=== PATIENT | male | born 1980 | race Caucasian/White ===

== ENCOUNTER 2017-08-07 21:55 | Inpatient (IN) | payer OTHER, SELFPAY ==
[2017-08-07 22:05] VITALS: BP 139/95; PULSE 89; RESP 24; TEMP 36.3; O2SAT 100
--- NOTE | 2017-08-07 22:15 | ED_ITS ---
HPI - Abdominal Pain General Chief Complaint: Abdominal Pain Stated Complaint: RT SIDE PAIN UNDER RIB CAGE Time Seen by Provider: 08/07/17 22:06 Source: patient Mode of arrival: ambulatory Limitations: no limitations History of Present Illness HPI narrative: Here for evaluation of epigastric and right pain. Patient states thatHe has not been feeling well for a couple days however the pain started within the past 24 hr. Patient states that he has been nauseated but has not vomited. He states he had pain similar to this several years ago where he was told that he needed his gallbladder removed. Patient states that he did not have his gallbladder removed because he did not have insurance at the time. Has not had any symptoms since that time Until now Related Data Home Medications Medication Instructions Recorded Confirmed aspirin 81 mg PO Q DAY #1 05/26/11 08/07/17 lisinopril 20 mg PO DAILY 08/07/17 08/07/17 Allergies Allergy/AdvReac Type Severity Reaction Status Date / Time No Known Drug Allergies Allergy Verified 08/07/17 22:12 Review of Systems Constitutional Denies chills, Denies fever(s), Denies lethargy and Denies weakness ENT Ears, Nose, Mouth, and Throat: Denies vertigo Cardiovascular Denies chest pain, Denies irregular heart rhythm, Denies lightheadedness, Denies palpitations, Denies dyspnea, Denies dyspnea on exertion and Denies orthopnea Respiratory Denies cough, Denies dyspnea, Denies dyspnea on exertion and Denies wheezing Gastrointestinal Gastrointestinal: Reports abdominal pain, Denies constipation, Denies cramping, Denies diarrhea, Reports nausea and Denies vomiting Genitourinary Denies dysuria Musculoskeletal Denies back pain, Denies muscle weakness, Denies numbness and Denies tingling Integumentary/Breasts Denies pruritus, Denies erythema, Denies rash and Denies wounds Neurologic Denies confusion, Denies vertigo, Denies numbness, Denies tingling and Denies weakness Psychiatric Denies confusion Endocrine Denies palpitations Allergic/Immunologic Denies wheezing [facility] Medical History Afib (Acute) HTN (hypertension) (Acute) Myocardial infarction (Acute) Social History Smoking Status: Never smoker Exam Initial Vital Signs Initial Vital Signs: Vital Signs Temperature 97.4 F L 08/07/17 22:05 Pulse Rate 89 08/07/17 22:05 Respiratory Rate 24 08/07/17 22:05 Blood Pressure 139/95 H 08/07/17 22:05 Pulse Oximetry 100 08/07/17 22:05 Resp Effort & Inspection: normal respiratory effort, able to speak in complete sentences, no respiratory distress and no use of accessory muscles Auscultation: clear to auscultation bilaterally, no rales, no rhonchi and no wheezes Cardio Rate: regular rate Rhythm: regular rhythm Heart Sounds: no click, no gallops, no murmurs and no rubs Pulses: normal peripheral pulses GI Other: patient with epigastric and right upper quadrant abdominal pain with guarding no rebound Skin General: no rashes or lesions noted, No jaundice and No petechiae Neuro General: alert, oriented x3, gait normal and no focal motor deficits Speech: speech normal Course Orders Ordered: ED Orders 08/07/17 22:15 Complete Blood Count AUTO DIFF Stat Comprehensive Metabolic Panel Stat Lipase Stat 08/07/17 22:16 US abdomen complete Stat 08/08/17 01:59 Consult to Physician Routine Hydromorphone HCl (Dilaudid) 1 mg IV Q4HR PRN PRN Reason: Pain, Severe Ondansetron HCl 4 mg/ Sodium (Chloride) 102 mls @ 204 mls/hr IV Q4HR HANNY Sodium Chloride (Normal Saline 0.9%) 1,000 mls @ 125 mls/hr IV CONT HANNY Discontinued Medications Diphenhydramine HCl (Benadryl) 25 mg IV NOW ONE Stop: 08/08/17 02:05 Last Admin: 08/08/17 02:18 Dose: 25 mg Hydromorphone HCl (Dilaudid) 1 mg IV NOW ONE Stop: 08/07/17 23:17 Last Admin: 08/07/17 23:20 Dose: 1 mg Hydromorphone HCl (Dilaudid) 1 mg IV Q4H PRN PRN Reason: Pain, Severe Last Admin: 08/08/17 01:30 Dose: 1 mg Sodium Chloride (Normal Saline 0.9%) 1,000 mls @ 150 mls/hr IV CONT HANNY Last Infusion: 08/08/17 02:24 Dose: 150 mls/hr Admin: 08/07/17 22:30 Dose: 150 mls/hr Morphine Sulfate (Morphine) 4 mg IV NOW ONE Stop: 08/07/17 22:16 Last Admin: 08/07/17 22:30 Dose: 4 mg Ondansetron HCl (Zofran) 4 mg IV NOW ONE Stop: 08/07/17 22:16 Last Admin: 08/07/17 22:30 Dose: 4 mg Vital Signs - 8 hr 08/07/17 22:05 08/07/17 23:17 08/08/17 02:14 Temperature 97.4 F L Pulse Rate 89 84 73 Respiratory Rate 24 22 17 Blood Pressure 139/95 H Blood Pressure [Right Arm] 124/65 H 105/67 Pulse Oximetry 100 97 95 08/08/17 02:23 Temperature Pulse Rate 77 Respiratory Rate 18 Blood Pressure 117/71 Blood Pressure [Right Arm] Pulse Oximetry 94 MDM - Abdominal Pain Lab Data Attestation: I reviewed the patient's lab results. Result diagrams: 08/07/17 22:15 08/07/17 22:15 Lab Results 08/07/17 08/07/17 Range/Units 22:15 22:15 WBC 7.7 (4.5-11.0) X10^3/uL RBC 5.01 (4.5-5.9) X10^6/uL Hgb 15.9 (13.5-17.5) g/dL Hct 45.5 (41-53) % MCV 90.7 (80-100) fL MCH 31.7 (26-34) PG MCHC 34.9 (30-36) % RDW 13.1 (11.6-14.8) % Plt Count 240 (150-400) X10^3/uL Neut % (Auto) 47.0 L (50-75) % Lymph % (Auto) 44.2 H (25-40) % [place] % (Auto) 6.6 (3-14) % Eos % (Auto) 1.1 L (2-4) % Baso % (Auto) 1.1 (0-2) % Neut # (Auto) 3600 (7312-2511) /uL Sodium 144 (137-145) mmol/L Potassium 4.1 (3.4-5.1) mmol/L Chloride 107 (98-107) mmol/L Carbon Dioxide 23 (22-32) mmol/L BUN 12 (9-20) mg/dL Creatinine 0.60 L (0.66-1.25) mg/dL Estimated GFR > 60.0 (>60) mL/min BUN/Creatinine Ratio 20.0 (6-22) Glucose 97 (70-100) mg/dL Calcium 9.0 (8.4-10.2) mg/dL Total Bilirubin 0.6 (0.2-1.3) mg/dL AST 33 (17-59) IU/L ALT 41 (21-72) IU/L Alkaline Phosphatase 57 (38-126) U/L Total Protein 8.6 H (6.3-8.2) g/dL Albumin 4.5 (3.5-5.0) g/dL Globulin 4.1 (1.7-4.1) g/dL Albumin/Globulin Ratio 1.1 (1.0-2.8) Lipase 3812 H (23-300) U/L Imaging Data Abdominal ultrasound: Radiologist's impression: Normal gallbladder common common bile duct normal ECG Data Attestation: I personally reviewed and interpreted this ECG as follows: Prior ECG tracings: not available for review Interpretation: Sinus rhythm Ventricular rate 79 normal axis Normal intervals No ST T wave changes MDM Narrative Medical decision making narrative: Patient does have right upper quadrant abdominal pain. Has normal LFTs. No signs of cholecystitis on the ultrasound. Has a normal white count. Does have an elevated lipase. Patient was given multiple doses of pain medication here in the emergency department. When I informed him of his diagnosis he states that he thinks that that was what he was diagnosed with several years ago and admitted to the hospital where he was then told that he needed his gallbladder removed. Discussed the case with Dr. Aquino who will admit. Discharge Plan Departure Patient Disposition: Admitted As Inpatient Clinical Impression: Pancreatitis Discharge Date/Time: 08/08/17 02:26 Interventions: ED Discharge Assessment Last Done: 08/08/17 02:23 Admit Date/Time: 08/08/17 02:10 Admit Provider: Tania Aquino
--- NOTE | 2017-08-07 22:16 | DI.US.S_ITS ---
PROCEDURE: US ABDOMEN COMPLETE INDICATIONS: 36-year-old male with right upper quadrant abdominal pain. TECHNIQUE: Real-time scanning was performed of the abdominal and retroperitoneal organs, with image documentation. COMPARISON: Outside Film, CT, CT KUB, 08/21/2016, 9:28. Outside Film, CT, CT KUB, 01/04/2016, 3:37. [facility], CT, ABDOMEN/PELVIS WITH CONTRAST, 05/25/2011, 22:32. [facility], US, ABDOMEN COMPLETE, 05/25/2011, 21:38. [facility], CT, KIDNEY/ URETER/BLADDER, 11/03/2010, 11:44. FINDINGS: Preliminary interpretation rendered by [facility]. Liver: Liver is normal in size and diffusely heterogeneous in echotexture, with distal acoustic attenuation. Gallbladder: No gallstones or biliary sludge. Gallbladder wall thickness is normal. No pericholecystic fluid. There is sonographic Castillo's sign. Biliary ducts: Intrahepatic bile ducts are non-dilated. Extrahepatic bile duct caliber measures 4.2 mm. Normal is 6-7 mm or less in diameter, or 10 mm or less post-cholecystectomy. Pancreas: Obscured by bowel gas. Spleen: Spleen is mildly enlarged at 14.6 cm, and homogeneous in echotexture. Kidneys: Kidneys are normal in size and echotexture. Right kidney measures 12.6 cm long; left kidney measures 12.7 cm long. No hydronephrosis or nephrolithiasis. No solid masses. Aorta: Obscured by bowel gas. Iliacs: Obscured by bowel gas. IVC: Obscured by echodense liver parenchyma. Miscellaneous: No free abdominal fluid. IMPRESSION: 1. Findings consistent with diffuse fatty infiltration of the liver. 2. No gallstones identified. Normal gallbladder wall thickness. Sonographic Castillo's sign may raise the question of early acute acalculous cholecystitis. No significant discrepancy with preliminary [facility] report. Dictated by: Emmanuel Deluca M.D. on 08/08/2017 at 8:03 Approved by: Emmanuel Deluca M.D. on 08/08/2017 at 8:08
[2017-08-07 22:25] LABS: Add Manual Diff / Slide Review NO; Basophils Percent Auto 1.1 % (0-2); Eosinophils Percent Auto 1.1 % (2-4); Hematocrit 45.5 % (41-53); Hemoglobin 15.9 g/dL (13.5-17.5); Lymphocytes Percent Auto 44.2 % (25-40); Mean Corpuscular HGB Conc 34.9 % (30-36); Mean Corpuscular Hemoglobin 31.7 PG (26-34); Mean Corpuscular Volume 90.7 fL (80-100); Monocytes Percent Auto 6.6 % (3-14); Neutrophils Absolute Auto 3600 /uL (3000-5900); Platelet Count 240 X10^3/uL (150-400); Red Blood Cell Count 5.01 X10^6/uL (4.5-5.9); Red Cell Distribution Width 13.1 % (11.6-14.8); White Blood Cell Count 7.7 X10^3/uL (4.5-11.0)
[2017-08-07] MEDS: ONDANSETRON 4 MG/2 ML INJ IV (22:30)
[2017-08-07] MEDS: SODIUM CHLORIDE 0.9% 1,000 ML 150 ML IV (22:30)
[2017-08-07] MEDS: MORPHINE 4 MG/ML INJ IV (22:30)
[2017-08-07 22:34] LABS: Alanine Aminotransferase 41 IU/L (21-72); Albumin 4.5 g/dL (3.5-5.0); Albumin Globulin Ratio 1.1 (1.0-2.8); Alkaline Phosphatase 57 U/L (38-126); Aspartate Aminotransferase 33 IU/L (17-59); Bilirubin Total 0.6 mg/dL (0.2-1.3); Blood Urea Nitrogen 12 mg/dL (9-20); Carbon Dioxide 23 mmol/L (22-32); Chloride 107 mmol/L (98-107); Estimated Glomerular Filt Rate > 60.0 mL/min (>60); Globulin 4.1 g/dL (1.7-4.1); Glucose 97 mg/dL (70-100); HEMOLYSIS 39 (0-50); Potassium 4.1 mmol/L (3.4-5.1); Sodium 144 mmol/L (137-145); Total Protein 8.6 g/dL (6.3-8.2)
[2017-08-07 22:42] LABS: Lipase 3812 U/L (23-300)
[2017-08-07 23:17] VITALS: BP 124/65; PULSE 84; RESP 22; O2SAT 97
[2017-08-07] MEDS: HYDROMORPHONE 0.5 MG INJ 1 MG IV (23:20)
[2017-08-08] VITALS (8 sets, daily range): BP systolic 84–141; BP diastolic 40–72; PULSE 65–77; RESP 15–20; TEMP 36.1–37; O2SAT 94–100; BMI 43.0
[2017-08-08] MEDS: HYDROMORPHONE 0.5 MG INJ 1 MG IV (01:30)
[2017-08-08] MEDS: diphenhydrAMINE 50 MG/ML VIAL 25 MG IV ×3 (02:18→15:50)
[2017-08-08] MEDS: HYDROMORPHONE 2 MG INJ 1 MG IV ×9 (03:29→23:48)
--- NOTE | 2017-08-08 04:07 | PC.NURSE ---
Pt admitted from ED by wheelchair for acute pancreatitis, elevated lipase. Pt AAOx3, calm and cooperative. Ambulates to bathroom with minimal assistance. VSS, complains of rt. sided abdomen pain that is stabbing in nature under rib cage. Will give IV Diluadid prn. NPO except ice. IVF's @ 125mls/hr. Discussed POC w/pt and safety when getting OOB, pt receptive to information.
[2017-08-08] MEDS: SODIUM CHLORIDE 0.9% IV (05:06)
[2017-08-08] MEDS: ONDANSETRON IV (05:06)
[2017-08-08] MEDS: SODIUM CHLORIDE 0.9% 1,000 ML 125 ML IV (06:13)
[2017-08-08] MEDS: ONDANSETRON 4 MG/2 ML INJ IV ×4 (08:49→21:36)
--- NOTE | 2017-08-08 10:00 | P.HP_ITS ---
History of Present Illness Date Patient Seen: 08/08/17 Chief complaint: RT SIDE PAIN UNDER RIB CAGE Narrative: Patient is a 36-year-old male who presented to the emergency department due to intractable upper abdominal pain for about 24 hr duration. He has had some nausea and dry heaves. His lipase was elevated over 3000. Abdominal ultrasound without stones or sludge or bile duct dilatation and liver tests are normal. Patient states he was hospitalized about a year ago at [facility] for similar abdominal pain and told he needs to have his gallbladder removed. However he has been doing fine since then up until now. He admits to heavy alcohol use in the past but has minimal intake in the last few years. Patient History Medical History Obesity (Acute) Paroxysmal atrial fibrillation (Acute) HTN (hypertension) (Acute) Family & Social History Family History: Reviewed 08/08/17 by Franklin Cuenca MD Social History: household members spouse,children Prior Living Arrangements Mobile home Safety & Behavioral: Feels Safe in Current Yes Environment Suicidal Ideation Description None Tobacco & Substance use: Smoking Status Never smoker alcohol intake frequency a few times a month Substance Use Type marijuana Meds Home Medications Medication Instructions Recorded Confirmed Type aspirin 81 mg PO Q DAY #1 05/26/11 08/07/17 History lisinopril 20 mg PO DAILY 08/07/17 08/07/17 History Allergies Allergy/AdvReac Type Severity Reaction Status Date / Time No Known Drug Allergies Allergy Verified 08/07/17 22:12 Review of Systems Review of Systems All systems reviewed & are unremarkable except as noted in HPI and below Exam Vital Signs (past 8 hours): Vital Signs - 8 hr 3 08/08/17 02:14 08/08/17 02:23 08/08/17 02:30 Temperature 98.1 F Pulse Rate 73 77 67 Respiratory Rate 17 18 20 Blood Pressure 117/71 107/68 Blood Pressure [Right Arm] 105/67 Pulse Oximetry 95 94 98 3 08/08/17 07:49 08/08/17 09:19 Temperature 97.0 F L Pulse Rate 65 Respiratory Rate 15 Blood Pressure 84/40 L 97/42 L Blood Pressure [Right Arm] Pulse Oximetry 99 Pulse Oximetry 99 Oxygen Delivery Method Room Air Oxygen Flow Rate 0 Narrative Exam Narrative: GENERAL: This is an alert well-nourished, well-developed patient HEAD: Atraumatic. Normocephalic. EYES: Pupils equal, round and reactive. Extraocular motions intact. No scleral icterus. No injection or drainage. OROPHARYNX: moist mucosa NECK: Trachea midline. No JVD or lymphadenopathy. CARDIOVASCULAR: Regular rate and rhythm without murmurs, gallops, or rubs. RESPIRATORY: Clear to auscultation bilaterally. GASTROINTESTINAL: Abdomen nondistended, soft, marked tenderness in right upper quadrant and less tenderness in epigastric, without guarding or rebound, no abdominal mass, no hepatosplenomegaly EXTREMITIES: No edema. NEUROLOGICAL: Alert, well oriented, speech is intact, normal bilateral upper and lower extremity strength SKIN: warm, dry, no rash Objective Imaging US - abdomen: Radiologist's impression: 1. Findings consistent with diffuse fatty infiltration of the liver. 2. No gallstones identified. Normal gallbladder wall thickness. Sonographic Castillo's sign may raise the question of early acute acalculous cholecystitis. Labs Result Diagrams: 08/07/17 22:15 08/07/17 22:15 Labs: Laboratory Results - last 24 hr 08/07/17 08/07/17 22:15 22:15 WBC 7.7 RBC 5.01 Hgb 15.9 Hct 45.5 MCV 90.7 MCH 31.7 MCHC 34.9 RDW 13.1 Plt Count 240 Neut % (Auto) 47.0 L Lymph % (Auto) 44.2 H [place] % (Auto) 6.6 Eos % (Auto) 1.1 L Baso % (Auto) 1.1 Neut # (Auto) 3600 Sodium 144 Potassium 4.1 Chloride 107 Carbon Dioxide 23 BUN 12 Creatinine 0.60 L Estimated GFR > 60.0 BUN/Creatinine Ratio 20.0 Glucose 97 Calcium 9.0 Total Bilirubin 0.6 AST 33 ALT 41 Alkaline Phosphatase 57 Total Protein 8.6 H Albumin 4.5 Globulin 4.1 Albumin/Globulin Ratio 1.1 Lipase 3812 H Assessment & Plan Plan: Assessment/Plan Narrative: 1. Acute pancreatitis: Etiology unclear. He may have passed a small stone. He may have intraductal stricture or tumor causing recurrent pancreatitis. As noted, ultrasound without any findings of gallstones, biliary sludge or bowel duct dilatation. Also note he is quite tender in the right upper quadrant but there is no fever or WBC elevation to suggest acute cholecystitis. Plan: IV fluids, pain management with IV Dilaudid, IV Zofran as needed, clear liquid diet , follow exam. Repeat CBC and chemistries in a.m.. Consider MRCP study as inpatient or outpatient. 2. Hypertension: Continue routine lisinopril 3. DVT prophylaxis: Low-dose Lovenox 4. Disposition: Inpatient admission Quality VTE Deep Vein Thrombosis/Pulmonary Embolism Present on Admission: No
[2017-08-08] MEDS: SODIUM CHLORIDE 0.9% 1,000 ML 1000 ML IV ×2 (10:42→12:45)
--- NOTE | 2017-08-08 12:52 | CM.DANOTE ---
DCP: assessment: case received, EMR reviewed. and met with pt. Introduced self and role. Pt is a 36 year old male who lives and works in [place]. Admitted yesterday to care of the hospitalist team. Payer: [employer] PCP: is in process of establishing with a [facility] provider as he recently changed insurance companies (is a company plan: works at [employer]: [employer]). Will [facility] re the [place] specifics and fax initial clinical to [facility] as per protocol. [facility] # [id number] Pt currently being treated for acute pancreatitis, etiology unclear. Full dx and tx lam remains in process. Pt lives with his Lindsey, his 16 yr old polion and 8 year old daughter. Plans home when stable for same. Will follow prn for any needs that may arise.
[2017-08-08] MEDS: SODIUM CHLORIDE 0.9% 1,000 ML 150 ML IV ×2 (15:49→23:01)
[2017-08-08] MEDS: ACETAMINOPHEN 325 MG TABLET 650 MG PO (21:06)
[2017-08-08] MEDS: MAG HYDROX/ALUM/SIMETH 30 ML UDC PO (21:06)
[2017-08-09] VITALS (7 sets, daily range): BP systolic 105–137; BP diastolic 49–78; PULSE 54–81; RESP 14–19; TEMP 36.1–37.3; O2SAT 91–98
[2017-08-09] MEDS: ONDANSETRON 4 MG/2 ML INJ IV ×6 (00:48→20:03)
[2017-08-09] MEDS: HYDROMORPHONE 2 MG INJ 1 MG IV ×6 (02:19→15:38)
[2017-08-09] MEDS: diphenhydrAMINE 50 MG/ML VIAL 25 MG IV ×3 (03:49→16:11)
[2017-08-09] MEDS: ACETAMINOPHEN 325 MG TABLET 650 MG PO ×4 (03:50→20:03)
[2017-08-09] MEDS: SODIUM CHLORIDE 0.9% 1,000 ML 150 ML IV ×3 (05:27→19:31)
[2017-08-09 05:30] LABS: Add Manual Diff / Slide Review NO; Basophils Percent Auto 0.7 % (0-2); Hematocrit 39.6 % (41-53); Hemoglobin 13.5 g/dL (13.5-17.5); Lymphocytes Percent Auto 31.3 % (25-40); Mean Corpuscular Hemoglobin 31.6 PG (26-34); Mean Corpuscular Volume 92.9 fL (80-100); Monocytes Percent Auto 6.8 % (3-14); Neutrophils Absolute Auto 4900 /uL (3000-5900); Neutrophils Percent Auto 60.2 % (50-75); Platelet Count 190 X10^3/uL (150-400); Red Blood Cell Count 4.27 X10^6/uL (4.5-5.9); Red Cell Distribution Width 13.1 % (11.6-14.8); White Blood Cell Count 8.2 X10^3/uL (4.5-11.0)
[2017-08-09 05:39] LABS: Alanine Aminotransferase 35 IU/L (21-72); Albumin 3.5 g/dL (3.5-5.0); Alkaline Phosphatase 49 U/L (38-126); Aspartate Aminotransferase 23 IU/L (17-59); BUN Creatinine Ratio 18.6 (6-22); Bilirubin Total 0.6 mg/dL (0.2-1.3); Blood Urea Nitrogen 13 mg/dL (9-20); Calcium 7.8 mg/dL (8.4-10.2); Carbon Dioxide 26 mmol/L (22-32); Chloride 106 mmol/L (98-107); Estimated Glomerular Filt Rate > 60.0 mL/min (>60); Globulin 3.5 g/dL (1.7-4.1); Glucose 90 mg/dL (70-100); HEMOLYSIS < 15 (0-50); Potassium 3.9 mmol/L (3.4-5.1); Sodium 140 mmol/L (137-145)
--- NOTE | 2017-08-09 07:55 | PC.NURSE ---
Addendum entered by Carmita Pan R.N. 08/09/17 12:25: Was unable to have MRI r/t not fitting in the machine. Dr Cuenca has been made aware and order was cancelled. Diet advanced to full liquids for lunch. Patient reports he was able to eat some soup and ice cream, tolerating well so far (without N/V or increased abd pain). Original Note: A&O X3. Reported 7/10 R abd/flank pain, medicated with IV Dilaudid per e-mar. Denies nausea at this time. Tolerating small amounts clear liquids. BT+, flatus+. Lungs CTA, HRR. SpO2 on RA 96%. IVF per orders, site in L forearm WNL. Indep with bed mobility, SBA OOB. Able to make needs known and calls appropriately. Light in reach.
[2017-08-09] MEDS: ENOXAPARIN 40 MG/0.4 ML SYRINGE SUBCUT (08:59)
--- NOTE | 2017-08-09 10:23 | PM.PN.1 ---
Subjective Date Patient Seen: 08/09/17 Interval history: Patient with improvement of abdominal pain and feeling a little more hungry. Exam Vital Signs (past 8 hours): Vital Signs - 8 hr 08/09/17 04:59 08/09/17 08:39 Temperature 98.3 F 97.0 F L Pulse Rate 70 54 L Respiratory Rate 19 14 Blood Pressure 128/61 H 105/63 Pulse Oximetry 98 95 Pulse Oximetry 95 Oxygen Delivery Method Room Air Oxygen Flow Rate 0 Narrative Exam Narrative: General: Alert and pleasant, no acute distress Lungs: Clear to auscultation Abdomen: Nondistended, soft, much less tender in epigastric and right upper quadrant Extremities: No edema Objective Labs Result Diagrams: 08/09/17 05:01 08/09/17 05:01 Labs: Laboratory Results - last 24 hr 08/09/17 08/09/17 05:01 05:01 WBC 8.2 RBC 4.27 L Hgb 13.5 Hct 39.6 L MCV 92.9 MCH 31.6 MCHC 34.0 RDW 13.1 Plt Count 190 Neut % (Auto) 60.2 Lymph % (Auto) 31.3 [place] % (Auto) 6.8 Eos % (Auto) 1.0 L Baso % (Auto) 0.7 Neut # (Auto) 4900 Sodium 140 Potassium 3.9 Chloride 106 Carbon Dioxide 26 BUN 13 Creatinine 0.70 Estimated GFR > 60.0 BUN/Creatinine Ratio 18.6 Glucose 90 Calcium 7.8 L Total Bilirubin 0.6 AST 23 ALT 35 Alkaline Phosphatase 49 Total Protein 7.0 Albumin 3.5 Globulin 3.5 Albumin/Globulin Ratio 1.0 Assessment & Plan Plan: Assessment/Plan Narrative: 1. Acute pancreatitis: Patient is clinically improving with less pain and improvement of appetite. Advance diet. Continue IV hydration, IV and oral analgesia as needed. This is patient's 2nd episode of acute pancreatitis, unknown etiology. His gallbladder ultrasound shows no stones or sludge or bowel duct dilatation. He was hospitalized last year at [facility] and had reportedly normal abdominal CT imaging and also a normal HIDA scan. Check triglycerides (pending). He should probably have MRCP study. This was ordered but can be done as outpatient if patient is otherwise ready for discharge in a.m.. 2. Hypertension: BP adequately controlled. Continue routine lisinopril. 3. Sleep apnea: Compliant with nasal CPAP 4. Severe obesity, BMI over 40 5. DVT prophylaxis: Low-dose Lovenox 6. Disposition: Inpatient admission. Possible discharge tomorrow, Thursday. Quality VTE Deep Vein Thrombosis/Pulmonary Embolism Present on Admission: No
--- NOTE | 2017-08-09 10:32 | P.PN_ITS ---
Subjective Date Patient Seen: 08/09/17 Interval history: Patient with improvement of abdominal pain and feeling a little more hungry. Exam Vital Signs (past 8 hours): Vital Signs - 8 hr 3 08/09/17 04:59 08/09/17 08:39 Temperature 98.3 F 97.0 F L Pulse Rate 70 54 L Respiratory Rate 19 14 Blood Pressure 128/61 H 105/63 Pulse Oximetry 98 95 Pulse Oximetry 95 Oxygen Delivery Method Room Air Oxygen Flow Rate 0 Narrative Exam Narrative: General: Alert and pleasant, no acute distress Lungs: Clear to auscultation Abdomen: Nondistended, soft, much less tender in epigastric and right upper quadrant Extremities: No edema Objective Labs Result Diagrams: 08/09/17 05:01 08/09/17 05:01 Labs: Laboratory Results - last 24 hr 08/09/17 08/09/17 05:01 05:01 WBC 8.2 RBC 4.27 L Hgb 13.5 Hct 39.6 L MCV 92.9 MCH 31.6 MCHC 34.0 RDW 13.1 Plt Count 190 Neut % (Auto) 60.2 Lymph % (Auto) 31.3 [place] % (Auto) 6.8 Eos % (Auto) 1.0 L Baso % (Auto) 0.7 Neut # (Auto) 4900 Sodium 140 Potassium 3.9 Chloride 106 Carbon Dioxide 26 BUN 13 Creatinine 0.70 Estimated GFR > 60.0 BUN/Creatinine Ratio 18.6 Glucose 90 Calcium 7.8 L Total Bilirubin 0.6 AST 23 ALT 35 Alkaline Phosphatase 49 Total Protein 7.0 Albumin 3.5 Globulin 3.5 Albumin/Globulin Ratio 1.0 Assessment & Plan Plan: Assessment/Plan Narrative: 1. Acute pancreatitis: Patient is clinically improving with less pain and improvement of appetite. Advance diet. Continue IV hydration, IV and oral analgesia as needed. This is patient's 2nd episode of acute pancreatitis, unknown etiology. His gallbladder ultrasound shows no stones or sludge or bowel duct dilatation. He was hospitalized last year at [facility] and had reportedly normal abdominal CT imaging and also a normal HIDA scan. Check triglycerides ( pending). He should probably have MRCP study. This was ordered but can be done as outpatient if patient is otherwise ready for discharge in a.m.. 2. Hypertension: BP adequately controlled. Continue routine lisinopril. 3. Sleep apnea: Compliant with nasal CPAP 4. Severe obesity, BMI over 40 5. DVT prophylaxis: Low-dose Lovenox 6. Disposition: Inpatient admission. Possible discharge tomorrow, Thursday. Quality VTE Deep Vein Thrombosis/Pulmonary Embolism Present on Admission: No
[2017-08-09 11:02] LABS: Triglycerides 173 mg/dL (35-150)
--- NOTE | 2017-08-09 19:44 | PC.NURSE ---
Pt recieved a 1mg dose of Dilaudid at 1538 today. (Pt only received 1mg at this time, he did not receive 2mg of dilaudid like how it is reflected in the MAR. Pt's next dose of 1mg of dilaudid was at 1834 today. (This dose is not reflected in the MAR for an unknown reason.) I will inform the next nurse of these series of events.
[2017-08-09] MEDS: MAG HYDROX/ALUM/SIMETH 30 ML UDC PO (22:04)
[2017-08-10] MEDS: ACETAMINOPHEN 325 MG TABLET 650 MG PO ×2 (00:04→08:44)
[2017-08-10] MEDS: ONDANSETRON 4 MG/2 ML INJ IV ×2 (01:15→05:29)
[2017-08-10] MEDS: SODIUM CHLORIDE 0.9% 1,000 ML 150 ML IV (02:05)
[2017-08-10 03:40] VITALS: BP 124/72; PULSE 64; RESP 17; TEMP 36.6; O2SAT 96
[2017-08-10 08:15] VITALS: BP 150/92; PULSE 71; RESP 16; TEMP 36.7; O2SAT 94
[2017-08-10] MEDS: LISINOPRIL 20 MG TABLET PO (08:44)
--- NOTE | 2017-08-10 08:50 | PC.NURSE ---
Addendum entered by Carmita Pan R.N. 08/10/17 11:44: Discharge: IV dc'd intact. Given all d/c instructions and reviewed thoroughly. Instructed to call and schedule follow up with PCP within 3-5 days. All personal belongings sent at discharge. Verbalized understanding of all d/c instructions and stated no further questions. Walked out to private vehicle accompanied by nursing staff. Original Note: Alert and oriented X3. Tolerating full liquids without N/V. Denies abd pain. Reports headache and was medicated with Tylenol for the same. BT+, flatus+. Abd soft, nontender. Lungs CTA, HRR. Indep with mobility, steady on feet. Able to make needs known. Reports feeling well enough that he hopes to go home today.
--- NOTE | 2017-08-10 10:46 | P.DS_ITS ---
History of Present Illness Date Patient Seen: 08/10/17 Time Patient Seen: 10:43 Chief complaint: RT SIDE PAIN UNDER RIB CAGE Narrative: Marcin Turner is a 36-year-old male who presented to the emergency department due to intractable upper abdominal pain for about 24 hr duration. He has had some nausea and dry heaves. His lipase was elevated over 3000. Abdominal ultrasound without stones or sludge or bile duct dilatation and liver tests are normal. Patient states he was hospitalized about a year ago at [facility] for similar abdominal pain and told he needs to have his gallbladder removed. This is his 3rd episode. However he has been doing fine since then up until now. He admits to heavy alcohol use in the past but has minimal intake in the last few years. Discharge Providers Date of admission: 08/08/17 02:10 Consults: 08/08/17 01:59 Consult to Physician Routine Comment: Consulting Provider: Tania Aquino Reason for consultation: Admission Has provider been notified: Yes Discharge provider: YVON Hampton Summary Discharge Diagnosis: 1. Acute pancreatitis 2. Hypertension 3. Sleep apnea 4. Severe obesity Hospital Course: This is a summary report for 3 day hospitalization for this 36- year-old male patient who was admitted with acute pancreatitis. He was originally treated with Benadryl, Dilaudid, morphine and Zofran in the emergency room. Abdominal ultrasound revealed findings consistent with diffuse fatty infiltration of the liver but no gallstones were identified. Gallbladder appeared normal wall thickness. Sonographic Castillo sign may raise the question of early acute acalculous cholecystitis. Lipase was 3812. His triglycerides were slightly elevated at 173. As an inpatient he was treated with IV fluids, IV Dilaudid, and clear liquids. The diet was advanced as tolerated without increased pain, nausea, or abdominal distention. He has not required any pain medications in the last 24 hr. He was scheduled for MRCP, but was unable to fit into the scanner and the study was canceled. His blood pressure has been controlled with p.o. home medicines. The patient is compliant with his sleep apnea device at home, and has been instructed to modify diet and increase exercise to reduce weight. He is to be followed up with his primary care provider in 3-5 days for further evaluation of surgical intervention. Status at Discharge Functional status at discharge: independent ambulation Overall status at discharge: patient is back to baseline Time Spent with Patient Greater than 30 minutes Exam Vital Signs (past 8 hours): Vital Signs - 8 hr 3 08/10/17 03:40 08/10/17 08:15 Temperature 97.9 F 98.0 F Pulse Rate 64 71 Respiratory Rate 17 16 Blood Pressure 124/72 H 150/92 H Pulse Oximetry 96 94 Pulse Oximetry 94 Oxygen Delivery Method Room Air Oxygen Flow Rate 0 Narrative Exam Narrative: Patient sitting in chair at bedside in no acute distress. Const General: cooperative and comfortable Nutritional Appearance: obese Orientation: alert, awake and oriented x3 HENMT Head: normal to inspection, normocephalic and atraumatic Eyes General: appearance normal, both eyes and all related structures Neck Neck: normal visual inspection Chest Chest: normal inspection of the chest Resp Effort & Inspection: normal respiratory effort and able to speak in complete sentences Auscultation: clear to auscultation bilaterally Cardio Rate: regular rate Heart Sounds: S1 normal and S2 normal GI Inspection: obesity Palpation: soft Percussion: normal to percussion Auscultation: normal bowel sounds Other: Nontender Other: Normal bladder Back/Spine/Pelvis Back: normal to inspection Skin General: no rashes or lesions noted, dry skin and warm Neuro General: alert, awake and oriented x3 Cognition: normal cognition Speech: speech normal Motor: muscle tone normal throughout Sensory Exam: no sensory deficits noted Extrem General: normal to inspection, no pedal edema and no calf tenderness Psych Appearance: grossly normal Mental Status: mental status grossly normal Mood: congruent mood Affect: normal affect Attitude: cooperative Thought Process: normal Thought Content: normal Judgment: judgment good Objective Labs Result Diagrams: 08/09/17 05:01 08/09/17 05:01 Labs: Laboratory Results - last 24 hr 08/09/17 05:01 Triglycerides 173 H Discharge Plan Discharge Plan Patient Disposition: Home, Self-Care Provider Discharge Instructions Diet: Diet as Tolerated, Regular, Low-fat and Low-cholesterol Activity: As tolerated Oxygen: Room air Wound Care Report to your healthcare provider any signs of infection, such as:: chills, fever, night sweats and increased pain Discharge Data Attending Provider: Tania Aquino Admit Date/Time: 08/08/17 02:10 Quality VTE Deep Vein Thrombosis/Pulmonary Embolism Present on Admission: No
== END 2017-08-10 11:54 | disposition home or self-care (01) | DRG 439 ==
LOC: ED 08-08 01:59 → AC 08-08 02:11
PROVIDERS: Internal Medicine; Admitting Provider Internal Medicine; Emergency Provider Emergency Medicine; Visit Provider Internal Medicine
DX: K85.90 Acute pancreatitis without necrosis or infection, unspecified (principal); Z68.41 Body mass index [BMI] 40.0-44.9, adult; I10 Essential (primary) hypertension; G47.30 Sleep apnea, unspecified; E66.01 Morbid (severe) obesity due to excess calories
CPT/HCPCS: 36415; 36591; 76700; 80053; 83690; 84478; 85025; 93005; 96361; 96374; 96375; 96376; 99283; 99285; J1170; J1200; J1650; J2270; J2405

== ENCOUNTER 2021-07-16 10:03 | Emergency (ER) | payer OTHER, SELFPAY ==
[2017-08-08 02:54] VITALS: BMI 43.0
[2021-07-16 10:12] VITALS: PULSE 81; O2SAT 97
[2021-07-16 10:14] VITALS: BP 174/96; PULSE 75; O2SAT 97
[2021-07-16 10:16] VITALS: BP 174/98; PULSE 67; RESP 19; TEMP 36.9; O2SAT 97; BMI 97.6
[2021-07-16 10:30] VITALS: BP 156/86; PULSE 72; O2SAT 97
[2021-07-16 10:40] LABS: Add Manual Diff / Slide Review NO; Basophils Absolute Auto 100 /uL (0-100); Eosinophils Absolute Auto 0 /uL (0-450); Eosinophils Percent Auto 0.7 % (2-4); Hematocrit 43.2 % (41-53); Hemoglobin 15.3 g/dL (13.5-17.5); Lymphocytes Absolute Auto 2100 /uL (1100-4500); Lymphocytes Percent Auto 34.7 % (25-40); Mean Corpuscular HGB Conc 35.4 % (30-36); Mean Corpuscular Hemoglobin 31.6 PG (26-34); Mean Corpuscular Volume 89.3 fL (80-100); Monocytes Absolute Auto 500 /uL (0-900); Monocytes Percent Auto 7.4 % (3-14); Neutrophils Absolute Auto 3400 /uL (1500-7000); Neutrophils Percent Auto 56.2 % (50-75); Platelet Count 214 X10^3/uL (150-400); Red Blood Cell Count 4.83 X10^6/uL (4.5-5.9); Red Cell Distribution Width 13.3 % (11.6-14.8); White Blood Cell Count 6.1 X10^3/uL (4.5-11.0)
[2021-07-16] MEDS: ONDANSETRON 4 MG/2 ML INJ IV (10:45)
[2021-07-16 10:49] LABS: Appearance Urine UA CLEAR; Bilirubin Urine UA NEGATIVE (NEGATIVE); Color Urine UA YELLOW; Glucose Urine UA NEGATIVE (Negative); Ketones Urine UA NEGATIVE (NEGATIVE); Leukocyte Esterase Urine UA NEGATIVE (NEGATIVE); Nitrite Urine UA NEGATIVE (Negative); Occult Blood Urine UA 3+ (Negative); Protein Urine UA NEGATIVE (Negative); Specific Gravity Urine UA 1.015 (1.000-1.035); Urobilinogen Urine UA 0.2 E.U./dL (0.2)
--- NOTE | 2021-07-16 10:52 | ED_ITS ---
HPI - Abdominal Pain General Chief Complaint: Abdominal Pain Stated Complaint: Lower lt ABD pain Time Seen by Provider: 07/16/21 10:19 Source: patient Mode of arrival: Ambulatory History of Present Illness HPI narrative: Patient is a 40-year-old male history of hypertension and diverticulitis presenting today with left lower quadrant pain. It has been ongoing for last 2 days. He vomited once. No change in bowel habits there has been no blood. He has not had any fever or chills. He says he has been hospitalized twice for it once that here and wants it would be. Does not remember few had any complications. He has not had any surgery for diverticulitis. According to records it does appear he was hospitalized here in 2018 for pancreatitis. Patient states that he has not been able to take his blood pressure medicine for the last 2 days due to nausea and decrease in appetite. Patient states he also has a history of kidney stones. Pain seems to have come and go. But usually he has pain in his flank area which he does not this time. He has also had waves of nausea as well. Related Data Home Medications Medication Instructions Recorded Confirmed aspirin 81 mg tablet,delayed 81 mg PO Q DAY #1 05/26/11 08/07/17 release lisinopril 20 mg tablet 20 mg PO DAILY 08/07/17 08/07/17 Previous Rx's Medication Instructions Recorded cephalexin 500 mg capsule 500 mg PO BID 7 Days #14 cap 07/16/21 hydrocodone 5 mg-acetaminophen 325 1 tab PO Q6H PRN #10 tab 07/16/21 mg tablet ondansetron 4 mg disintegrating 4 mg PO Q8H #10 tab 07/16/21 tablet Allergies Allergy/AdvReac Type Severity Reaction Status Date / Time No Known Drug Allergies Allergy Verified 08/07/17 22:12 Review of Systems Review of Systems Narrative: GENERAL: Denies chills, fatigue, malaise, fever, sweats, travel HEENT: Denies sinus pain, ear pain, sore throat, difficulty swallowing, neck pain RESPIRATORY: Denies dyspnea, cough, wheezing, hemoptysis, sputum. CARDIOVASCULAR: Denies chest pain, palpitations, orthopnea, edema GASTROINTESTINAL: See HPI : Denies dysuria, frequency, incontinence, hematuria, urinary retention, flank pain. MUSCULOSKELETAL: Denies weakness, joint pain, or bony pain SKIN: No rash, no erythema, no pruritus NEUROLOGIC: Denies weakness, dizziness, headache, numbness, change in speech, confusion PSYCHIATRIC: No concerning psychosocial issues. 12 point review of systems is negative except for those stated above and HPI Patient History Medical History HTN (hypertension) Obesity Obstructive sleep apnea Pancreatitis Paroxysmal atrial fibrillation Social History household members: spouse and children Smoking Status: Never smoker Smoking Status: Never smoker alcohol intake frequency: a few times a month Substance Use Type: marijuana Exam Initial Vital Signs Initial Vital Signs: Vital Signs Pulse Rate 81 07/16/21 10:12 Pulse Oximetry 97 07/16/21 10:12 GENERAL: Alert 40-year-old male BMI 97 appears uncomfortable HEENT: Head atraumatic,EOMI, pupils reactive, face symmetric, moist mucous membranes CARDIOVASCULAR: Regular rate and rhythm without murmurs, rubs or gallops. RESPIRATORY: Breath sounds equal bilaterally, no wheezes rales or rhonchi. ABDOMEN: Soft, tender left lower quadrant pain without guarding or rebound EXTREMITIES: Normal range of motion, no clubbing or edema. Neurovascularly intact NEUROLOGICAL: Alert and oriented x4.Normal gait and speech. SKIN: Warm, dry, no laceration, no petechiae, no rashes or lesions. Course Orders Ordered: ED Orders 07/16/21 10:31 Complete Blood Count AUTO DIFF Stat Comprehensive Metabolic Panel Stat Lipase Stat 07/16/21 10:43 Urinalysis and Microscopic Stat Urine Culture Stat 07/16/21 11:38 CT abdomen pelvis w con Stat Discontinued Medications Ketorolac Tromethamine (Ketorolac 30 Mg/Ml Vial) 15 mg IV NOW ONE Stop: 07/16/21 11:13 Last Admin: 07/16/21 11:18 Dose: 15 mg Documented by: SHYANN Ondansetron HCl (Ondansetron 4 Mg/2 Ml Inj) 4 mg IV NOW ONE Stop: 07/16/21 10:20 Last Admin: 07/16/21 10:45 Dose: 4 mg Documented by: SHYANN Vital Signs Vital signs: Vital Signs - 8 hr 07/16/21 10:12 07/16/21 10:14 07/16/21 10:16 Temperature 98.5 F Pulse Rate 81 75 67 Respiratory Rate 19 Blood Pressure 174/96 H 174/98 H Pulse Oximetry 97 97 97 07/16/21 10:30 07/16/21 12:49 Temperature Pulse Rate 72 72 Respiratory Rate Blood Pressure 156/86 H 146/98 H Pulse Oximetry 97 98 MDM - Abdominal Pain Lab Data Result diagrams: 07/16/21 10:31 07/16/21 10:31 Labs: Lab Results 07/16/21 07/16/21 07/16/21 Range/Units 10:31 10:31 10:43 WBC 6.1 (4.5-11.0) X10^3/uL RBC 4.83 (4.5-5.9) X10^6/uL Hgb 15.3 (13.5-17.5) g/dL Hct 43.2 (41-53) % MCV 89.3 (80-100) fL MCH 31.6 (26-34) PG MCHC 35.4 (30-36) % RDW 13.3 (11.6-14.8) % Plt Count 214 (150-400) X10^3/uL Neut % (Auto) 56.2 (50-75) % Lymph % (Auto) 34.7 (25-40) % [place] % (Auto) 7.4 (3-14) % Eos % (Auto) 0.7 L (2-4) % Baso % (Auto) 1.0 (0-2) % Neut # (Auto) 3400 (0065-5029) /uL Lymph # (Auto) 2100 (5357-9827) /uL [place] # (Auto) 500 (0-900) /uL Eos # (Auto) 0 (0-450) /uL Baso # (Auto) 100 (0-100) /uL Sodium 139 (137-145) mmol/L Potassium 4.2 (3.4-5.1) mmol/L Chloride 107 (98-107) mmol/L Carbon Dioxide 26 (22-32) mmol/L BUN 10 (9-20) mg/dL Creatinine 0.67 (0.66-1.25) mg/dL Estimated GFR > 60 (>60) mL/min BUN/Creatinine Ratio 14.9 (6-22) Glucose 105 H (70-100) mg/dL Calcium 9.3 (8.4-10.2) mg/dL Total Bilirubin 0.7 (0.2-1.3) mg/dL AST 53 (17-59) IU/L ALT 75 H (<50) IU/L Alkaline Phosphatase 56 (38-126) U/L Total Protein 8.8 H (6.3-8.2) g/dL Albumin 4.8 (3.5-5.0) g/dL Globulin 4.0 (1.7-4.1) g/dL Albumin/Globulin Ratio 1.2 (1.0-2.8) Lipase 184 (23-300) U/L Urine Color Yellow Urine Appearance Clear Urine pH 6.0 (4.5-8.0) Ur Specific [place] 1.015 (1.000-1.035) Urine Protein Negative (Negative) Urine Glucose (UA) Negative (Negative) g/dL Urine Ketones Negative (NEGATIVE) Urine Occult Blood 3+ H (Negative) Urine Nitrate Negative (Negative) Urine Bilirubin Negative (NEGATIVE) Urine Urobilinogen 0.2 (0.2) E.U./dL Ur Leukocyte Esterase Negative (NEGATIVE) Urine RBC 5-10/hpf H (0-5/HPF) Urine WBC 5-10/hpf H (0-5/HPF) Urine Bacteria Few (2-10) H (None) Ur Culture Indicated? Specimen cultured Imaging Data CT scan - abdomen/pelvis: Radiologist's Impression: Signed Patient: Marcin Turner MR#: [id number] : 1980 Acct:[id number] Age/Sex: 40 / M Date of Service: 07/16/21 Loc: ED Accession Number: [id number] ?? Procedure: CT abdomen pelvis w con Ordering Provider: Silva Peng D.O. PROCEDURE:? CT ABDOMEN PELVIS W CON ? INDICATIONS:? llq pain hx diverticulitis ? TECHNIQUE:? After the administration of intravenous contrast, axial sections acquired from the lung bases to the pubic symphysis.? Coronal and sagittal reformats were performed.? For radiation dose reduction, the following was used:? automated exposure control, adjustment of mA and/or kV according to patient size.? ? COMPARISON:? [facility] [place], CT, ABDOMEN/PELVIS WITH CONTRAST, 05/25/2011, 22:32. ? FINDINGS:? Image quality:? Excellent.? ? Lung bases:? Unremarkable. Heart:? No significant findings. ? ABDOMEN: Liver:? Diffusely hypodense suggesting fatty infiltration. Gallbladder:? Unremarkable.? ? Biliary ducts:? Unremarkable.? ? Pancreas:? Unremarkable.? ? Spleen:? Unremarkable.? ? Adrenal Glands:? Unremarkable.? ? Kidneys and Ureters:? No hydronephrosis.? Punctate nonobstructing left renal calculi are present.? No hydroureter or ureterolithiasis. ? Stomach and Bowel:? Stomach, small bowel loops, and colon are unremarkable.? The appendix is thin walled and gas filled. There are scattered sigmoid diverticula. No evidence for diverticulitis. Peritoneum:? No abnormal intraperitoneal fluid.? No free air.? ? Ventral Wall: ? No hernias.? Abdominal Nodes:? No retroperitoneal or mesenteric adenopathy by size criteria.? Vessels:? Aorta and inferior vena cava are normal in size.? ? PELVIS: Pelvic Organs:? Unremarkable.? ? Bladder:? Unremarkable.? ? Pelvic Nodes: No enlarged lymph nodes.? Miscellaneous: No hernias are seen. ? ? ? Bones:? Unremarkable.? IMPRESSION:? ? 1. No acute intra-abdominal findings.? Normal appendix. ? 2. Diverticulosis.? No findings to suggest acute diverticulitis. ? 3. Hepatic steatosis.? ? ? Dictated by: Tiffany Page M.D. on 07/16/2021 at 11:43 ? ? Approved by: Tiffany Page M.D. on 07/16/2021 at 11:46 ? MDM Narrative Medical decision making narrative: Patient with triple diverticulitis and kidney stones. Pain is up and on for last 2 days with waves of nausea. Urine does show some hematuria. CT does not show diverticulitis does show punctate kidney stones in the left kidney but no stone in the ureter. However patient's symptoms are most consistent with kidney stone 100 diverticulitis. He has no leukocytosis. He does have bacteria in his urine. He is overall feeling better after Zofran and Toradol. Will treat for kidney stone and UTI. I assume extremely small kidney stone or recently passed kidney stone. Discussed this with him and understands return precautions. Discharge Plan Departure Patient Disposition: Home Clinical Impression: Kidney stones Instructions: Kidney Stones -- Adult Activity Restrictions/Additional Instructions: *You have been diagnosed with kidney stone *What to do: Kidney stone is very small. No sign of diverticulitis at this time. Will treat with antibiotics for infection as well. *Continue to take medications as directed Ibuprofen 100 mg every 8 hours if needed for rprp-um-auhabwap pain, next dose due at 8:00 p.m. [place] 1 tablet every 6 hours only if needed for severe pain Zofran 4 mg every 8 hours if needed for nausea or vomiting Keflex 500 mg twice a day for 7 days *Follow up with your primary care provider in 2-3 days or call [phone] *Return to ER if you should have increasing pain persistent vomiting fever or any new, worsening or concerning symptoms CONTROLLED SUBSTANCE DISCHARGE (Narcotoic/benzodiazepine/Flexeril/Phenergan) 1. You have been prescribed narcotic medications, it does have acetaminophen/Tylenol/paracetamol in it, DO NOT TAKE MORE THAN 4,00mg in 24 hours of Tylenol. TRAMADOL DOES NOT CONTAIN TYLENOL 2. Please understand that we cannot provide further refills of narcotics, benzodiazepines or controlled substances through the ED and her pain management will need to be through your provider. 3. While on these medications you cannot drive or operate heavy machinery. 4. You cannot sign legal documents or perform any duties such as this. 5. As long as you're taking opiate pain medications he should also be taking a stool softener such as Colace, Dulcolax, MiraLAX or prune juice, to help avoid constipation. Prescriptions: New hydrocodone-acetaminophen 5-325 mg tablet 1 tab PO Q6H PRN (Reason: pain) Qty: 10 0RF cephalexin 500 mg capsule 500 mg PO BID 7 Days Qty: 14 0RF ondansetron 4 mg tablet,disintegrating 4 mg PO Q8H Qty: 10 0RF No Action aspirin 81 MG tablet,delayed release (DR/EC) 81 mg PO Q DAY Qty: 1 0RF lisinopril 20 mg Tablet 20 mg PO DAILY 0RF
[2021-07-16 10:54] LABS: Alanine Aminotransferase 75 IU/L (<50); Albumin 4.8 g/dL (3.5-5.0); Albumin Globulin Ratio 1.2 (1.0-2.8); Alkaline Phosphatase 56 U/L (38-126); Aspartate Aminotransferase 53 IU/L (17-59); BUN Creatinine Ratio 14.9 (6-22); Bilirubin Total 0.7 mg/dL (0.2-1.3); Blood Urea Nitrogen 10 mg/dL (9-20); Calcium 9.3 mg/dL (8.4-10.2); Carbon Dioxide 26 mmol/L (22-32); Chloride 107 mmol/L (98-107); Estimated Glomerular Filt Rate > 60 mL/min (>60); Glucose 105 mg/dL (70-100); HEMOLYSIS < 15 (0-50); Lipase 184 U/L (23-300); Potassium 4.2 mmol/L (3.4-5.1); Sodium 139 mmol/L (137-145); Total Protein 8.8 g/dL (6.3-8.2)
[2021-07-16 11:07] LABS: Bacteria Urine Few (2-10); Culture Indicated Urine Specimen Cultured; RBC Urine 5-10/HPF (0-5/HPF); WBC Urine 5-10/HPF (0-5/HPF)
[2021-07-16] MEDS: KETOROLAC 30 MG/ML VIAL 15 MG IV (11:18)
--- NOTE | 2021-07-16 11:38 | DI.CT.S_ITS ---
PROCEDURE: CT ABDOMEN PELVIS W CON INDICATIONS: llq pain hx diverticulitis TECHNIQUE: After the administration of intravenous contrast, axial sections acquired from the lung bases to the pubic symphysis. Coronal and sagittal reformats were performed. For radiation dose reduction, the following was used: automated exposure control, adjustment of mA and/or kV according to patient size. COMPARISON: [facility], CT, ABDOMEN/PELVIS WITH CONTRAST, 05/25/2011, 22:32. FINDINGS: Image quality: Excellent. Lung bases: Unremarkable. Heart: No significant findings. ABDOMEN: Liver: Diffusely hypodense suggesting fatty infiltration. Gallbladder: Unremarkable. Biliary ducts: Unremarkable. Pancreas: Unremarkable. Spleen: Unremarkable. Adrenal Glands: Unremarkable. Kidneys and Ureters: No hydronephrosis. Punctate nonobstructing left renal calculi are present. No hydroureter or ureterolithiasis. Stomach and Bowel: Stomach, small bowel loops, and colon are unremarkable. The appendix is thin walled and gas filled. There are scattered sigmoid diverticula. No evidence for diverticulitis. Peritoneum: No abnormal intraperitoneal fluid. No free air. Ventral Wall: No hernias. Abdominal Nodes: No retroperitoneal or mesenteric adenopathy by size criteria. Vessels: Aorta and inferior vena cava are normal in size. PELVIS: Pelvic Organs: Unremarkable. Bladder: Unremarkable. Pelvic Nodes: No enlarged lymph nodes. Miscellaneous: No hernias are seen. Bones: Unremarkable. IMPRESSION: 1. No acute intra-abdominal findings. Normal appendix. 2. Diverticulosis. No findings to suggest acute diverticulitis. 3. Hepatic steatosis. Dictated by: Tiffany Page M.D. on 07/16/2021 at 11:43 Approved by: Tiffany Page M.D. on 07/16/2021 at 11:46
[2021-07-16 12:49] VITALS: BP 146/98; PULSE 72; O2SAT 98
== END 2021-07-16 12:51 | disposition home or self-care (01) ==
PROVIDERS: Emergency Provider Emergency Medicine
DX: R11.2 Nausea with vomiting, unspecified (principal); N20.0 Calculus of kidney; R31.9 Hematuria, unspecified
CPT/HCPCS: 74177; 80053; 81001; 83690; 85025; 87086; 96374; 96375; 99283; 99284; J1885; J2405

== ENCOUNTER 2022-10-26 12:30 | Emergency (ER) | payer OTHER, SELFPAY ==
[2017-08-08 02:54] VITALS: BMI 43.0
[2022-10-26 12:34] VITALS: BP 151/70; PULSE 85; RESP 18; TEMP 36.3; O2SAT 96; BMI 45.8
--- NOTE | 2022-10-26 12:45 | DI.CT.S_ITS ---
PROCEDURE: CT ABDOMEN PELVIS W CON INDICATIONS: Left inguinal/lower quadrant pain, constipation, hx divertic TECHNIQUE: After the administration of IV contrast, axial sections were acquired from the lung bases to the pubic symphysis. Coronal and sagittal reformats were performed. For radiation dose reduction, the following was used: automated exposure control, adjustment of mA and/or kV according to patient size. COMPARISON: [facility], CT, CT ABDOMEN PELVIS W CON, 07/16/2021, 11:26. FINDINGS: Image quality: Excellent. Lung bases: Unremarkable. Heart: No significant findings. ABDOMEN: Liver: An enlarged, fatty infiltrated liver can be seen. No focally suspicious liver lesion is seen. Gallbladder: Unremarkable. Biliary ducts: Unremarkable. Pancreas: Unremarkable. Spleen: Unremarkable. Adrenal Glands: Unremarkable. Kidneys and Ureters: There is a nonobstructing left-sided kidney stone seen measuring 4 mm, as on series 3, image 44. No hydronephrosis is seen on either side. Likely simple bilateral renal cysts can be seen. Stomach and Bowel: Generalized [id number] wall thickening can be seen involving the distal colon, beginning at the level of the splenic flexure and continuing through the sigmoid colon. Mild distal colonic diverticulosis is seen, without findings of active diverticulitis. The burden of stool within the colon is not excessive. A normal appendix is noted. No dilated loops of small bowel are seen. The stomach demonstrates no significant abnormality. Peritoneum: No abnormal intraperitoneal fluid. No free air. Ventral Wall: No hernia. Abdominal Nodes: No retroperitoneal or mesenteric adenopathy by size criteria. Vessels: Aorta and inferior vena cava are normal in size. PELVIS: Pelvic Organs: Unremarkable. Bladder: Unremarkable. Pelvic Nodes: No enlarged lymph nodes. Miscellaneous: No inguinal hernias are seen. Bones: Unremarkable. IMPRESSION: [id number] distal colonic wall thickening can be seen. Please correlate with potential infectious and inflammatory causes of colitis, including C. difficile colitis. No findings of perforation or abscess can be seen. Distal colonic diverticulosis is seen. The current process is not believed to be related to diverticulitis, since the amount of involved colon on the current study is broader than commonly seen in diverticulitis. Additional findings: Enlarged, fatty liver. Simple likely bilateral renal cysts Nonobstructing left-sided kidney stone Normal appendix Dictated by: Sanju Mercer M.D. on 10/26/2022 at 12:42 Approved by: Sanju Mercer M.D. on 10/26/2022 at 12:45
--- NOTE | 2022-10-26 12:45 | ED.ABDPAIN ---
HPI - Abdominal Pain <YVON Maguire - Last Filed: 10/26/22 14:00> General Chief Complaint: Abdominal Pain Stated Complaint: lt abd pain Time Seen by Provider: 10/26/22 12:36 Source: patient Mode of arrival: Family Vehicle History of Present Illness HPI narrative: This is a 41-year-old gentleman with history of obesity and hypertension, pancreatitis who presents to the emergency department complaining of left lower quadrant pain which is similar to prior episodes of diverticulitis which has gotten worse over the last 2 days with vomiting that started today. He states that he was taking MiraLax a couple of days ago and is having pellet-like stools. States that he does not have any urinary changes or blood in his stool, denies any rectal pain, denies upper abdominal pain, chest pain or shortness of breath. States that his pain will come up last night and then he came in today because he can not get on top of the pain. Denies fever chills, denies any upper respiratory symptoms. Related Data Home Medications Medication Instructions Recorded Confirmed aspirin 81 mg tablet,delayed 81 mg PO Q DAY ##1 05/26/11 08/07/17 release lisinopril 20 mg tablet 20 mg PO DAILY 08/07/17 08/07/17 Previous Rx's Medication Instructions Recorded hydrocodone 5 mg-acetaminophen 325 1 tab PO Q6H PRN pain #10 tabs 07/16/21 mg tablet ondansetron 4 mg disintegrating 4 mg PO Q8H #10 tabs 07/16/21 tablet amoxicillin 875 mg-potassium 1 tab PO BID 7 days #14 tabs 10/26/22 clavulanate 125 mg tablet hydrocodone 5 mg-acetaminophen 325 1 tab PO Q6H PRN pain #10 tabs 10/26/22 mg tablet tamsulosin 0.4 mg capsule (Flomax) 0.4 mg PO BEDTIME #14 caps 10/26/22 Allergies Allergy/AdvReac Type Severity Reaction Status Date / Time No Known Drug Allergies Allergy Verified 10/26/22 12:34 Review of Systems <YVON Maguire - Last Filed: 10/26/22 14:00> Review of Systems ROS Unobtainable: All systems reviewed & are unremarkable except as noted in HPI and below Patient History <YVON Maguire - Last Filed: 10/26/22 14:00> Medical History HTN (hypertension) Obesity Obstructive sleep apnea Pancreatitis Paroxysmal atrial fibrillation Social History household members: spouse and children Smoking Status: Never smoker Smoking Status: Never smoker alcohol intake frequency: a few times a month Substance Use Type: marijuana Exam <YVON Maguire - Last Filed: 10/26/22 14:00> Narrative Exam Narrative: Reviewed vitals signs and nursing notes. General: Pleasant, sitting upright, appears uncomfortable, well groomed, afebrile HEENT: symmetrical facial expressions, moist mucous membranes, neck is supple CV: regular rate and rhythm, warm extremities Respiratory: normal work of breathing, without tachypnea or hypoxia. GI: abdomen soft, nondistended, without CVA tenderness bilaterally. Left lower quadrant with tenderness to palpation, no masses, no guarding, no rebound MSK: moves all extremities, no weakness, normal tone, ambulatory without deficit Skin: brisk capillary refill, without rash or wound Neuro: clear speech and normal cognition, A&O x3, GCS 15, no focal motor or sensation deficits Initial Vital Signs Initial Vital Signs: Vital Signs Temperature 97.4 F L 10/26/22 12:34 Pulse Rate 85 10/26/22 12:34 Respiratory Rate 18 10/26/22 12:34 Blood Pressure 151/70 H 10/26/22 12:34 Pulse Oximetry 96 10/26/22 12:34 Oxygen Delivery Method Room Air 10/26/22 12:34 <Lonny Barr DO - Last Filed: 10/26/22 18:47> Initial Vital Signs Initial Vital Signs: Vital Signs Temperature 97.4 F L 10/26/22 12:34 Pulse Rate 85 10/26/22 12:34 Respiratory Rate 18 10/26/22 12:34 Blood Pressure 151/70 H 10/26/22 12:34 Pulse Oximetry 96 10/26/22 12:34 Oxygen Delivery Method Room Air 10/26/22 12:34 Course <YVON Maguire - Last Filed: 10/26/22 14:00> Orders Ordered: ED Orders 10/26/22 12:44 Urine Microscopic Stat 10/26/22 12:45 CT abdomen pelvis w con Stat 10/26/22 12:51 CBC Auto Diff [Complete Blood Count AUTO DIFF] Stat CMP [Comprehensive Metabolic Panel] Stat Lipase Stat Discontinued Medications Hydromorphone HCl (Hydromorphone 0.5 Mg Inj) 0.5 mg IV NOW ONE Stop: 10/26/22 12:46 Last Admin: 10/26/22 13:09 Dose: 0.5 mg Documented By: RL Sodium Chloride (Normal Saline 0.9%) 1,000 mls @ 1,000 mls/hr IV BOLUS ONE Stop: 10/26/22 13:41 Last Infusion: 10/26/22 14:08 Dose: 0 mls/hr Documented By: Admin: 10/26/22 13:08 Dose: 1,000 mls/hr Documented By: RL Ketorolac Tromethamine (Ketorolac 30 Mg/Ml Vial) 15 mg IV NOW ONE Stop: 10/26/22 12:46 Last Admin: 10/26/22 13:09 Dose: 15 mg Documented By: JOHANN Ondansetron HCl (Ondansetron 4 Mg/2 Ml Inj) 4 mg IV NOW ONE Stop: 10/26/22 12:43 Last Admin: 10/26/22 13:09 Dose: 4 mg Documented By: JOHANN Tamsulosin HCl (Tamsulosin 0.4 Mg Capsule) 0.4 mg PO NOW ONE Stop: 10/26/22 13:51 Last Admin: 10/26/22 13:57 Dose: 0.4 mg Documented By: NR Vital Signs Vital signs: Vital Signs - 8 hr 10/26/22 12:34 Temperature 97.4 F L Pulse Rate 85 Respiratory Rate 18 Blood Pressure 151/70 H Pulse Oximetry 96 Oxygen Delivery Method Room Air <Lonny Barr DO - Last Filed: 10/26/22 18:47> Orders Ordered: ED Orders 10/26/22 12:44 Urine Microscopic Stat 10/26/22 12:45 CT abdomen pelvis w con Stat 10/26/22 12:51 CBC Auto Diff [Complete Blood Count AUTO DIFF] Stat CMP [Comprehensive Metabolic Panel] Stat Lipase Stat Discontinued Medications Hydromorphone HCl (Hydromorphone 0.5 Mg Inj) 0.5 mg IV NOW ONE Stop: 10/26/22 12:46 Last Admin: 10/26/22 13:09 Dose: 0.5 mg Documented By: RL Sodium Chloride (Normal Saline 0.9%) 1,000 mls @ 1,000 mls/hr IV BOLUS ONE Stop: 10/26/22 13:41 Last Infusion: 10/26/22 14:08 Dose: 0 mls/hr Documented By: Admin: 10/26/22 13:08 Dose: 1,000 mls/hr Documented By: RL Ketorolac Tromethamine (Ketorolac 30 Mg/Ml Vial) 15 mg IV NOW ONE Stop: 10/26/22 12:46 Last Admin: 10/26/22 13:09 Dose: 15 mg Documented By: RL Ondansetron HCl (Ondansetron 4 Mg/2 Ml Inj) 4 mg IV NOW ONE Stop: 10/26/22 12:43 Last Admin: 10/26/22 13:09 Dose: 4 mg Documented By: RL Tamsulosin HCl (Tamsulosin 0.4 Mg Capsule) 0.4 mg PO NOW ONE Stop: 10/26/22 13:51 Last Admin: 10/26/22 13:57 Dose: 0.4 mg Documented By: NR Vital Signs Vital signs: Vital Signs - 8 hr 10/26/22 12:34 Temperature 97.4 F L Pulse Rate 85 Respiratory Rate 18 Blood Pressure 151/70 H Pulse Oximetry 96 Oxygen Delivery Method Room Air MDM - Abdominal Pain <ZULEIKA MaguireP - Last Filed: 10/26/22 14:00> Lab Data 10/26/22 12:51 10/26/22 12:51 Labs: Lab Results 10/26/22 10/26/22 10/26/22 Range/Units 12:44 12:51 12:51 WBC 7.2 (4.5-11.0) X10^3/uL RBC 4.90 (4.5-5.9) X10^6/uL Hgb 15.7 (13.5-17.5) g/dL Hct 45.5 (41-53) % MCV 92.7 (80-100) fL MCH 32.0 (26-34) PG MCHC 34.6 (30-36) % RDW 12.9 (11.6-14.8) % Plt Count 242 (150-400) X10^3/uL Neut % (Auto) 61.3 (50-75) % Lymph % (Auto) 30.4 (25-40) % [place] % (Auto) 6.5 (3-14) % Eos % (Auto) 0.9 L (2-4) % Baso % (Auto) 0.9 (0-2) % Neut # (Auto) 4400 (2907-5701) /uL Lymph # (Auto) 2200 (1008-4985) /uL [place] # (Auto) 500 (0-900) /uL Eos # (Auto) 100 (0-450) /uL Baso # (Auto) 100 (0-100) /uL Sodium 139 (137-145) mmol/L Potassium 4.1 (3.4-5.1) mmol/L Chloride 106 (98-107) mmol/L Carbon Dioxide 24 (22-32) mmol/L BUN 9 (9-20) mg/dL Creatinine 0.61 L (0.66-1.25) mg/dL Estimated GFR > 60 (>60) mL/min BUN/Creatinine Ratio 14.8 (6-22) Glucose 112 H (70-100) mg/dL Calcium 9.1 (8.4-10.2) mg/dL Total Bilirubin 0.8 (0.2-1.3) mg/dL AST 53 (17-59) IU/L ALT 61 H (<50) IU/L Alkaline Phosphatase 53 (38-126) U/L Total Protein 8.7 H (6.3-8.2) g/dL Albumin 4.7 (3.5-5.0) g/dL Globulin 4.0 (1.7-4.1) g/dL Albumin/Globulin Ratio 1.2 (1.0-2.8) Lipase 170 (23-300) U/L Urine RBC 10-30/hpf H (0-5/HPF) Urine WBC 1-5/hpf (0-5/HPF) Ur Squamous Epith Cells None seen (0-5/HPF) Urine Bacteria None seen (None) Ur Culture Indicated? Cult not indicated Point of care testing: Urine Dip Bedside Urine Glucose Negative Bedside Urine Bilirubin - Negative Bedside Urine Ketone - Negative Urine Specific [place] 1.020 Bedside Urine Occult Blood +++ Bedside Urine pH 6.5 Bedside Urine Protein - Negative Bedside Urine Urobilinogen - Negative Bedside Urine Nitrite - Negative Bedside Urine Leukocytes - Negative Esterase Imaging Data CT scan - abdomen/pelvis: Radiologist's Impression: [address] [address] [address] Scan Report Signed Patient: Marcin Turner MR#: [id number] : 1980 Acct:[id number] Age/Sex: 41 / M Date of Service: 10/26/22 Loc: ED Accession Number: [id number] ?? Procedure: CT abdomen pelvis w con Ordering Provider: Shantell Ferraro PROCEDURE:? CT ABDOMEN PELVIS W CON ? INDICATIONS:? Left inguinal/lower quadrant pain, constipation, hx divertic ? TECHNIQUE:? After the administration of IV contrast, axial sections were acquired from the lung bases to the pubic symphysis.? Coronal and sagittal reformats were performed.? For radiation dose reduction, the following was used:? automated exposure control, adjustment of mA and/or kV according to patient size. ? COMPARISON:? [facility], CT, CT ABDOMEN PELVIS W CON, 07/16/2021, 11:26. ? FINDINGS:? Image quality:? Excellent.? ? Lung bases:? Unremarkable.? ? Heart:? No significant findings. ? ? ABDOMEN: Liver:? An enlarged, fatty infiltrated liver can be seen.? No focally suspicious liver lesion is seen. Gallbladder:? Unremarkable.? ? Biliary ducts:? Unremarkable.? ? Pancreas:? Unremarkable.? ? Spleen:? Unremarkable.? ? Adrenal Glands:? Unremarkable.? ? Kidneys and Ureters:? There is a nonobstructing left-sided kidney stone seen measuring 4 mm, as on series 3, image 44. No hydronephrosis is seen on either side.? Likely simple bilateral renal cysts can be seen. ? Stomach and Bowel:? Generalized ansy-qu-gephyklg wall thickening can be seen involving the distal colon, beginning at the level of the splenic flexure and continuing through the sigmoid colon. Mild distal colonic diverticulosis is seen, without findings of active diverticulitis.? The burden of stool within the colon is not excessive. A normal appendix is noted.? No dilated loops of small bowel are seen. The stomach demonstrates no significant abnormality.? Peritoneum:? No abnormal intraperitoneal fluid.? No free air.? ? Ventral Wall: ? No hernia.? Abdominal Nodes:? No retroperitoneal or mesenteric adenopathy by size criteria.? Vessels:? Aorta and inferior vena cava are normal in size.? ? PELVIS: Pelvic Organs:? Unremarkable.? ? Bladder:? Unremarkable.? ? Pelvic Nodes: No enlarged lymph nodes.? Miscellaneous: No inguinal hernias are seen. ? ? ? Bones:? Unremarkable.? IMPRESSION:? ? Pfdw-bg-viluzxmc distal colonic wall thickening can be seen.? Please correlate with potential infectious and inflammatory causes of colitis, including C. difficile colitis. ? No findings of perforation or abscess can be seen. ? Distal colonic diverticulosis is seen.? The current process is not believed to be related to diverticulitis, since the amount of involved colon on the current study is broader than commonly seen in diverticulitis. ? Additional findings:? Enlarged, fatty liver.? Simple likely bilateral renal cysts Nonobstructing left-sided kidney stone Normal appendix ? Dictated by: Sanju Mercer M.D. on 10/26/2022 at 12:42 ? ? Approved by: Sanju Mercer M.D. on 10/26/2022 at 12:45 ? MDM Narrative Medical decision making narrative: Chief Complaint: Left lower quadrant/inguinal pain Multiple etiologies for patient's complaint considered including, but not limited to: Diverticulitis, urinary tract infection, bowel obstruction, perforated viscus, nephrolithiasis, proctocolitis, prostatitis I have independently reviewed the patient's vital signs and nursing notes as well as prior records if available. Plan: Pain control with Toradol and Dilaudid, 1 L of IV fluids, Zofran, CT abdomen pelvis for evaluation of lower left quadrant pain with history of diverticulitis Course of Care: Urine dip shows positive for blood, without leukocytes, glucose, ketones or leukocyte esterase, sent for microscopy, evaluation for obstructive uropathy versus left bowel for diverticulitis No leukocytosis or anemia, no left shift, chemistry is grossly unremarkable, normal lipase, urine dip with blood, no WBCs or bacteria, pending CT image. CT shows distal colonic diverticulosis with mild to moderate distal colonic wall thickening, patient does not have diarrhea and has not had recent antibiotics so unlikely to be C difficile colitis. He has a 4 mm left-sided kidney stone with hydronephrosis,. Since he has hematuria, left abdominal tenderness palpation with mild to moderate distal wall colonic thickening, will treat for colitis with Augmentin x7 days, clear liquid diet, MiraLax, pain control and Flomax for his left-sided kidney stone with hematuria. No bacteria wbc's. Gave contact information for Dr. Humphreys for patient to follow-up as an outpatient if he continues to have left-sided pain with hematuria. Patient's pain was treated with Dilaudid and Toradol, he reports feeling much better at this time. Social considerations that may affect disposition: none Questions are addressed and there is agreement with the plan and for follow-up. I consulted with the ED attending physician Dr. Barr as needed for higher level of care considerations and they were available for discussion and recommendations regarding plan of care and diagnostic testing. Patient is appropriate for outpatient management. <Lonny Barr, DO - Last Filed: 10/26/22 18:47> Lab Data Labs: Lab Results 10/26/22 10/26/22 10/26/22 Range/Units 12:44 12:51 12:51 WBC 7.2 (4.5-11.0) X10^3/uL RBC 4.90 (4.5-5.9) X10^6/uL Hgb 15.7 (13.5-17.5) g/dL Hct 45.5 (41-53) % MCV 92.7 (80-100) fL MCH 32.0 (26-34) PG MCHC 34.6 (30-36) % RDW 12.9 (11.6-14.8) % Plt Count 242 (150-400) X10^3/uL Neut % (Auto) 61.3 (50-75) % Lymph % (Auto) 30.4 (25-40) % [place] % (Auto) 6.5 (3-14) % Eos % (Auto) 0.9 L (2-4) % Baso % (Auto) 0.9 (0-2) % Neut # (Auto) 4400 (9624-8095) /uL Lymph # (Auto) 2200 (4595-1416) /uL [place] # (Auto) 500 (0-900) /uL Eos # (Auto) 100 (0-450) /uL Baso # (Auto) 100 (0-100) /uL Sodium 139 (137-145) mmol/L Potassium 4.1 (3.4-5.1) mmol/L Chloride 106 (98-107) mmol/L Carbon Dioxide 24 (22-32) mmol/L BUN 9 (9-20) mg/dL Creatinine 0.61 L (0.66-1.25) mg/dL Estimated GFR > 60 (>60) mL/min BUN/Creatinine Ratio 14.8 (6-22) Glucose 112 H (70-100) mg/dL Calcium 9.1 (8.4-10.2) mg/dL Total Bilirubin 0.8 (0.2-1.3) mg/dL AST 53 (17-59) IU/L ALT 61 H (<50) IU/L Alkaline Phosphatase 53 (38-126) U/L Total Protein 8.7 H (6.3-8.2) g/dL Albumin 4.7 (3.5-5.0) g/dL Globulin 4.0 (1.7-4.1) g/dL Albumin/Globulin Ratio 1.2 (1.0-2.8) Lipase 170 (23-300) U/L Urine RBC 10-30/hpf H (0-5/HPF) Urine WBC 1-5/hpf (0-5/HPF) Ur Squamous Epith Cells None seen (0-5/HPF) Urine Bacteria None seen (None) Ur Culture Indicated? Cult not indicated Point of care testing: Urine Dip Bedside Urine Glucose Negative Bedside Urine Bilirubin - Negative Bedside Urine Ketone - Negative Urine Specific [place] 1.020 Bedside Urine Occult Blood +++ Bedside Urine pH 6.5 Bedside Urine Protein - Negative Bedside Urine Urobilinogen - Negative Bedside Urine Nitrite - Negative Bedside Urine Leukocytes - Negative Esterase Discharge Plan Departure Patient Disposition: Home Clinical Impression: Nephrolithiasis, Left sided abdominal pain, Colitis Hematuria Qualifiers: Hematuria type: gross Qualified Code(s): R31.0 - Gross hematuria Instructions: DI for Kidney Stones, DI for Colitis Activity Restrictions/Additional Instructions: *You have been diagnosed with a left-sided kidney stone which may be causing this pain as it has recently passed through a painful area but there is no evidence of obstruction or anything dangerous, you have blood in your urine, and: Inflammation which is not thought to be diverticulitis but I am going to treat you as if it is bacterial. I want you to take Flomax for the next 1-2 weeks to help pass this stone, it is measured at 4 mm. And if you notice something hard in your urine stream or in the toilet, you can stop taking Flomax. Please take Augmentin twice a day for the next 7 days, use Zofran as needed for nausea, trying drink clear fluids and avoid fatty foods and difficult to digest foods. If you develop worsening, or recurrence, please come back to the emergency department for another evaluation. Take MiraLax daily for soft stool and return if you need to. Use ibuprofen for and pain pills occasionally as needed. *What to do: *Please continue to take your regular medications as directed. [x ] New medication prescriptions sent to your pharmacy: [[facility]] [ ] New medication written as a paper prescription [ ] No new medications given *Please call and schedule follow up with your primary care provider in 2-3 days, at least for an update. Let them know you were seen in the Emergency Department for the above problem. We will electronically transmit a record of today's note if your PCP or specialist is in our system. *If you do not have a primary care provider please contact [phone] to establish care with one of the [facility] primary care providers. *Return to the Emergency Department for worsening symptoms, inability to keep liquids down, fever greater than 101F, chills, or other concerning symptom. Prescriptions: New hydrocodone-acetaminophen 5-325 mg tablet 1 tab PO Q6H PRN (Reason: pain) Qty: 10 0RF tamsulosin [Flomax] 0.4 mg capsule 0.4 mg PO BEDTIME Qty: 14 0RF amoxicillin-pot clavulanate 875-125 mg tablet 1 tab PO BID 7 Days Qty: 14 0RF No Action aspirin 81 MG tablet,delayed release (DR/EC) 81 mg PO Q DAY Qty: 1 lisinopril 20 mg Tablet 20 mg PO DAILY hydrocodone-acetaminophen 5-325 mg tablet 1 tab PO Q6H PRN (Reason: pain) Qty: 10 0RF ondansetron 4 mg tablet,disintegrating 4 mg PO Q8H Qty: 10 0RF Referrals: Violet Humphreys MD [Physician] - (Please schedule appointment if you continue to have this left-sided pain with blood in your urine) Stand Alone Forms: Patient Portal/API <Lonny Barr, - Last Filed: 10/26/22 18:47> Cosign ED Attending Cosmosheature Attestation: I was immediately available in the department for consultation. Documentation has been reviewed. I agree with assessment and plan.
[2022-10-26] MEDS: SODIUM CHLORIDE 0.9% 1,000 ML 1000 ML IV (13:08)
[2022-10-26] MEDS: KETOROLAC 30 MG/ML VIAL 15 MG IV (13:09)
[2022-10-26] MEDS: HYDROMORPHONE 0.5 MG INJ IV (13:09)
[2022-10-26] MEDS: ONDANSETRON 4 MG/2 ML INJ IV (13:09)
[2022-10-26 13:12] LABS: Add Manual Diff / Slide Review NO; Basophils Absolute Auto 100 /uL (0-100); Basophils Percent Auto 0.9 % (0-2); Eosinophils Absolute Auto 100 /uL (0-450); Eosinophils Percent Auto 0.9 % (2-4); Hematocrit 45.5 % (41-53); Hemoglobin 15.7 g/dL (13.5-17.5); Lymphocytes Absolute Auto 2200 /uL (1100-4500); Lymphocytes Percent Auto 30.4 % (25-40); Mean Corpuscular HGB Conc 34.6 % (30-36); Mean Corpuscular Volume 92.7 fL (80-100); Monocytes Absolute Auto 500 /uL (0-900); Monocytes Percent Auto 6.5 % (3-14); Neutrophils Absolute Auto 4400 /uL (1500-7000); Neutrophils Percent Auto 61.3 % (50-75); Platelet Count 242 X10^3/uL (150-400); Red Cell Distribution Width 12.9 % (11.6-14.8); White Blood Cell Count 7.2 X10^3/uL (4.5-11.0)
[2022-10-26 13:18] LABS: Alanine Aminotransferase 61 IU/L (<50); Albumin 4.7 g/dL (3.5-5.0); Albumin Globulin Ratio 1.2 (1.0-2.8); Alkaline Phosphatase 53 U/L (38-126); Aspartate Aminotransferase 53 IU/L (17-59); BUN Creatinine Ratio 14.8 (6-22); Bilirubin Total 0.8 mg/dL (0.2-1.3); Blood Urea Nitrogen 9 mg/dL (9-20); Calcium 9.1 mg/dL (8.4-10.2); Carbon Dioxide 24 mmol/L (22-32); Chloride 106 mmol/L (98-107); Estimated Glomerular Filt Rate > 60 mL/min (>60); Glucose 112 mg/dL (70-100); HEMOLYSIS < 15 (0-50); Lipase 170 U/L (23-300); Potassium 4.1 mmol/L (3.4-5.1); Sodium 139 mmol/L (137-145); Total Protein 8.7 g/dL (6.3-8.2)
[2022-10-26 13:29] LABS: Bacteria Urine None Seen; RBC Urine 10-30/HPF (0-5/HPF); Squamous Epithelial Cell Urine None Seen (0-5/HPF); WBC Urine 1-5/HPF (0-5/HPF)
[2022-10-26 13:30] LABS: Culture Indicated Urine Cult Not Indicated
[2022-10-26] MEDS: TAMSULOSIN 0.4 MG CAPSULE PO (13:57)
== END 2022-10-26 14:08 | disposition home or self-care (01) ==
PROVIDERS: Emergency Provider Nurse Practitioner Critical Care Medicine
DX: N20.0 Calculus of kidney (principal); R10.32 Left lower quadrant pain; K52.9 Noninfective gastroenteritis and colitis, unspecified; R31.0 Gross hematuria
CPT/HCPCS: 36415; 74177; 80053; 81003; 81015; 83690; 85025; 96361; 96374; 96375; 99284; J1170; J1885; J2405; Q9967

== ENCOUNTER 2022-11-08 05:08 | Emergency (ER) | payer OTHER, SELFPAY ==
[2017-08-08 02:54] VITALS: BMI 43.0
[2022-11-08 05:12] VITALS: BP 147/93; PULSE 86; O2SAT 95
[2022-11-08 05:14] VITALS: BP 147/93; PULSE 77; RESP 26; TEMP 36.6; O2SAT 97; BMI 44.3
--- NOTE | 2022-11-08 05:16 | DI.CT.S_ITS ---
PROCEDURE: CT ABDOMEN PELVIS W CON INDICATIONS: LLQ abd pain hx of stones and diverticulitis TECHNIQUE: After the administration of intravenous contrast, axial sections acquired from the lung bases to the pubic symphysis. Coronal and sagittal reformats were performed. For radiation dose reduction, the following was used: automated exposure control, adjustment of mA and/or kV according to patient size. COMPARISON: [facility], CT, CT ABDOMEN PELVIS W CON, 10/26/2022, 13:21. FINDINGS: Lung bases: No pleural effusion ABDOMEN: Liver: Diffuse hypoattenuation likely fatty infiltration. Gallbladder: Unremarkable. Biliary ducts: Unremarkable. Pancreas: Unremarkable. Spleen: Unremarkable. Adrenal Glands: Unremarkable. Kidneys and Ureters: 5 mm stone left proximal-mid ureter with minimal upstream hydroureteronephrosis. This may represent the stone at the left renal pelvis present on the recent CT. Mild delay in left renal enhancement. Nonobstructing left renal stone also present. Stomach and Bowel: No bowel obstruction. Mild predominantly sigmoid colonic diverticulosis without evidence of acute diverticulitis. Peritoneum: No abnormal intraperitoneal fluid. No free air. Abdominal Nodes: No retroperitoneal or mesenteric adenopathy by size criteria. Vessels: Aorta and inferior vena cava are normal in size. PELVIS: Pelvic Organs: Unremarkable. Bladder: Unremarkable. Pelvic Nodes: No enlarged lymph nodes. Bones: Multilevel degenerative change of the visualized spine. IMPRESSION: 5 mm stone left proximal-mid ureter with minimal upstream hydroureteronephrosis. Other findings as above. Dictated by: Duncan Escalante M.D. on 11/08/2022 at 7:17 Approved by: Duncan Escalante M.D. on 11/08/2022 at 7:23
--- NOTE | 2022-11-08 05:16 | ED_ITS ---
HPI - General Adult <Kenan Blancas DO - Last Filed: 11/08/22 23:47> General Chief complaint: Urogenital-Male Stated complaint: KIDNEY STONE Time Seen by Provider: 11/08/22 05:11 Source: patient Mode of arrival: Ambulatory Limitations: no limitations History of Present Illness HPI narrative: Patient is a 42-year-old male. Has had a history of pancreatitis. Has also had history of diverticulitis and reported history kidney stones. He comes in the emergency department this evening because he states he was woken up with left- sided flank pain. Initially he stated that it felt very similar to prior history of kidney stones although when I evaluated him further he stated that he is unsure whether not it is consistent with kidney stones or his diverticulitis. He is having some nausea and vomiting. He states it feels like he needs to have a bowel movement but can not. He is having blood in his urine. It is tender to the touch in the left side of his abdomen. Denies any fevers. Did take Tylenol prior to arrival. Related Data Home Medications Medication Instructions Recorded Confirmed aspirin 81 mg tablet,delayed 81 mg PO Q DAY ##1 05/26/11 08/07/17 release lisinopril 20 mg tablet 20 mg PO DAILY 08/07/17 08/07/17 Previous Rx's Medication Instructions Recorded hydrocodone 5 mg-acetaminophen 325 1 tab PO Q6H PRN pain #10 tabs 07/16/21 mg tablet ondansetron 4 mg disintegrating 4 mg PO Q8H #10 tabs 07/16/21 tablet hydrocodone 5 mg-acetaminophen 325 1 tab PO Q6H PRN pain #10 tabs 10/26/22 mg tablet tamsulosin 0.4 mg capsule (Flomax) 0.4 mg PO BEDTIME #14 caps 10/26/22 ondansetron 4 mg disintegrating 4 mg PO Q6H PRN nausea and 11/08/22 tablet vomiting #10 tabs oxycodone 5 mg tablet 5 mg PO QID PRN pain #14 tabs 11/08/22 tamsulosin 0.4 mg capsule (Flomax) 0.4 mg PO DAILY #7 caps 11/08/22 Allergies Allergy/AdvReac Type Severity Reaction Status Date / Time No Known Drug Allergies Allergy Verified 10/26/22 12:34 Review of Systems <Kenan Blancas DO - Last Filed: 11/08/22 23:47> Constitutional Constitutional: Reports system reviewed and no additional complaints, except as documented Cardiovascular Cardiovascular: Reports system reviewed and no additional complaints, except as documented Respiratory Respiratory: Reports system reviewed and no additional complaints, except as documented Gastrointestinal Gastrointestinal: Reports abdominal pain, Reports cramping, Reports nausea and Reports vomiting Genitourinary Genitourinary: Reports hematuria Integumentary/Breasts Skin/Breast: Reports system reviewed and no additional complaints, except as documented Hematologic/Lymphatic On Anticoagulants: No Patient History <DO Laura Guadarrama Last Filed: 11/08/22 23:47> Medical History HTN (hypertension) Obesity Obstructive sleep apnea Pancreatitis Paroxysmal atrial fibrillation Social History household members: spouse and children Smoking Status: Never smoker Smoking Status: Never smoker alcohol intake frequency: a few times a month Substance Use Type: marijuana Exam <DO Laura Guadarrama Last Filed: 11/08/22 23:47> Initial Vital Signs Initial Vital Signs: Vital Signs Pulse Rate 86 11/08/22 05:12 Blood Pressure 147/93 H 11/08/22 05:12 Pulse Oximetry 95 11/08/22 05:12 Const General: cooperative, comfortable and No ill appearing HENAL Head: normal to inspection and normocephalic Resp Effort & Inspection: normal respiratory effort Cardio Rate: regular rate GI Inspection: normal to inspection and non-distended Palpation: soft, No firm, No guarding and tender (Left-sided abdomen) Skin General: no rashes or lesions noted Neuro General: patient alert, patient awake and moves all extremities Extrem General: normal to inspection and capillary refill normal <Eva Livingston DO - Last Filed: 11/08/22 18:32> Initial Vital Signs Initial Vital Signs: Vital Signs Pulse Rate 86 11/08/22 05:12 Blood Pressure 147/93 H 11/08/22 05:12 Pulse Oximetry 95 11/08/22 05:12 Course <Kenan Blancas DO - Last Filed: 11/08/22 23:47> Orders Ordered: Discontinued Medications Ketorolac Tromethamine (Ketorolac 30 Mg/Ml Vial) 30 mg IV NOW ONE Stop: 11/08/22 05:16 Last Admin: 11/08/22 05:22 Dose: 30 mg Documented By: ES Morphine Sulfate (Morphine 4 Mg/Ml Inj) 4 mg IV NOW ONE Stop: 11/08/22 08:08 Last Admin: 11/08/22 08:17 Dose: 4 mg Documented By: RLS Ondansetron HCl (Ondansetron 4 Mg/2 Ml Inj) 4 mg IV NOW ONE Stop: 11/08/22 05:16 Last Admin: 11/08/22 05:22 Dose: 4 mg Documented By: ES Tamsulosin HCl (Tamsulosin 0.4 Mg Capsule) 0.4 mg PO NOW ONE Stop: 11/08/22 08:08 Last Admin: 11/08/22 08:16 Dose: 0.4 mg Documented By: RLS Vital Signs Vital signs: Vital Signs - 8 hr 11/08/22 05:14 11/08/22 05:12 11/08/22 05:12 Temperature 97.8 F Pulse Rate 77 86 Respiratory Rate 26 H Blood Pressure 147/93 H 147/93 H Pulse Oximetry 97 95 Oxygen Delivery Method Room Air 11/08/22 05:30 11/08/22 05:30 Temperature Pulse Rate 74 Respiratory Rate Blood Pressure 165/84 H Pulse Oximetry 97 Oxygen Delivery Method <Eva Livingston DO - Last Filed: 11/08/22 18:32> Orders Ordered: Discontinued Medications Ketorolac Tromethamine (Ketorolac 30 Mg/Ml Vial) 30 mg IV NOW ONE Stop: 11/08/22 05:16 Last Admin: 11/08/22 05:22 Dose: 30 mg Documented By: ES Morphine Sulfate (Morphine 4 Mg/Ml Inj) 4 mg IV NOW ONE Stop: 11/08/22 08:08 Last Admin: 11/08/22 08:17 Dose: 4 mg Documented By: RLS Ondansetron HCl (Ondansetron 4 Mg/2 Ml Inj) 4 mg IV NOW ONE Stop: 11/08/22 05:16 Last Admin: 11/08/22 05:22 Dose: 4 mg Documented By: ES Tamsulosin HCl (Tamsulosin 0.4 Mg Capsule) 0.4 mg PO NOW ONE Stop: 11/08/22 08:08 Last Admin: 11/08/22 08:16 Dose: 0.4 mg Documented By: RLS Vital Signs Vital signs: Vital Signs - 8 hr 11/08/22 05:14 11/08/22 05:12 11/08/22 05:12 Temperature 97.8 F Pulse Rate 77 86 Respiratory Rate 26 H Blood Pressure 147/93 H 147/93 H Pulse Oximetry 97 95 Oxygen Delivery Method Room Air 11/08/22 05:30 11/08/22 05:30 Temperature Pulse Rate 74 Respiratory Rate Blood Pressure 165/84 H Pulse Oximetry 97 Oxygen Delivery Method Medical Decision Making <Kenan Blancas DO - Last Filed: 11/08/22 23:47> Medical Records Medical records reviewed: Yes I reviewed the patient's medical records. Lab Data Lab results reviewed: Yes I reviewed the patient's lab results. 11/08/22 05:32 11/08/22 06:00 Labs: Lab Results 11/08/22 11/08/22 11/08/22 Range/Units 05:32 06:00 07:30 WBC 6.5 (4.5-11.0) X10^3/uL RBC 4.62 (4.5-5.9) X10^6/uL Hgb 14.9 (13.5-17.5) g/dL Hct 42.6 (41-53) % MCV 92.2 (80-100) fL MCH 32.3 (26-34) PG MCHC 35.1 (30-36) % RDW 12.9 (11.6-14.8) % Plt Count 207 (150-400) X10^3/uL Neut % (Auto) 47.5 L (50-75) % Lymph % (Auto) 42.3 H (25-40) % Jenkins % (Auto) 7.9 (3-14) % Eos % (Auto) 1.2 L (2-4) % Baso % (Auto) 1.1 (0-2) % Neut # (Auto) 3100 (4102-8031) /uL Lymph # (Auto) 2800 (7849-6025) /uL Jenkins # (Auto) 500 (0-900) /uL Eos # (Auto) 100 (0-450) /uL Baso # (Auto) 100 (0-100) /uL Sodium 138 (137-145) mmol/L Potassium 3.8 (3.4-5.1) mmol/L Chloride 107 (98-107) mmol/L Carbon Dioxide 22 (22-32) mmol/L BUN 18 (9-20) mg/dL Creatinine 0.59 L (0.66-1.25) mg/dL Estimated GFR > 60 (>60) mL/min BUN/Creatinine Ratio 30.5 H (6-22) Glucose 157 H (70-100) mg/dL Calcium 8.2 L (8.4-10.2) mg/dL Total Bilirubin 0.5 (0.2-1.3) mg/dL AST 40 (17-59) IU/L ALT 51 H (<50) IU/L Alkaline Phosphatase 49 (38-126) U/L Total Protein 7.8 (6.3-8.2) g/dL Albumin 4.1 (3.5-5.0) g/dL Globulin 3.7 (1.7-4.1) g/dL Albumin/Globulin Ratio 1.1 (1.0-2.8) Lipase 153 (23-300) U/L Urine RBC None seen (0-5/HPF) Urine WBC None seen (0-5/HPF) Ur Squamous Epith Cells None seen (0-5/HPF) Urine Bacteria None seen (None) Ur Culture Indicated? Cult not indicated Urine Dip Bedside Urine Glucose Negative Bedside Urine Bilirubin - Negative Bedside Urine Ketone - Negative Urine Specific [place] 1.005 Bedside Urine Occult Blood + Bedside Urine pH 6.0 Bedside Urine Protein - Negative Bedside Urine Urobilinogen - Negative Bedside Urine Nitrite - Negative Bedside Urine Leukocytes - Negative Esterase Point of care testing: Urine Dip Bedside Urine Glucose Negative Bedside Urine Bilirubin - Negative Bedside Urine Ketone - Negative Urine Specific [place] 1.005 Bedside Urine Occult Blood + Bedside Urine pH 6.0 Bedside Urine Protein - Negative Bedside Urine Urobilinogen - Negative Bedside Urine Nitrite - Negative Bedside Urine Leukocytes - Negative Esterase MDM Narrative Medical decision making narrative: Patient presents today with multiple potential etiologies who his symptoms. He has a history of pancreatitis however his abdominal pain today is more in the left lower quadrant. He has had hematuria which points towards a kidney stone h owever he has reproducible tenderness to palpation which would potentially be more consistent with diverticulitis. Patient was uncertain as to whether not his symptoms today were consistent with his prior history of renal stones or diverticulitis. Review of his medical record shows that the time that he has mentioned that was diagnosed with kidney stones that he actually did not have any ureteral stones on the CT scan. He was treated presumptively like he would just passed a stone. Because this uncertainty a CT scan was ordered. Care turned over to they provider to follow up and disposition. <Evabrian Livingston, DO - Last Filed: 11/08/22 18:32> Lab Data Labs: Lab Results 11/08/22 11/08/22 11/08/22 Range/Units 05:32 06:00 07:30 WBC 6.5 (4.5-11.0) X10^3/uL RBC 4.62 (4.5-5.9) X10^6/uL Hgb 14.9 (13.5-17.5) g/dL Hct 42.6 (41-53) % MCV 92.2 (80-100) fL MCH 32.3 (26-34) PG MCHC 35.1 (30-36) % RDW 12.9 (11.6-14.8) % Plt Count 207 (150-400) X10^3/uL Neut % (Auto) 47.5 L (50-75) % Lymph % (Auto) 42.3 H (25-40) % Jenkins % (Auto) 7.9 (3-14) % Eos % (Auto) 1.2 L (2-4) % Baso % (Auto) 1.1 (0-2) % Neut # (Auto) 3100 (0859-4241) /uL Lymph # (Auto) 2800 (0085-1546) /uL Jenkins # (Auto) 500 (0-900) /uL Eos # (Auto) 100 (0-450) /uL Baso # (Auto) 100 (0-100) /uL Sodium 138 (137-145) mmol/L Potassium 3.8 (3.4-5.1) mmol/L Chloride 107 (98-107) mmol/L Carbon Dioxide 22 (22-32) mmol/L BUN 18 (9-20) mg/dL Creatinine 0.59 L (0.66-1.25) mg/dL Estimated GFR > 60 (>60) mL/min BUN/Creatinine Ratio 30.5 H (6-22) Glucose 157 H (70-100) mg/dL Calcium 8.2 L (8.4-10.2) mg/dL Total Bilirubin 0.5 (0.2-1.3) mg/dL AST 40 (17-59) IU/L ALT 51 H (<50) IU/L Alkaline Phosphatase 49 (38-126) U/L Total Protein 7.8 (6.3-8.2) g/dL Albumin 4.1 (3.5-5.0) g/dL Globulin 3.7 (1.7-4.1) g/dL Albumin/Globulin Ratio 1.1 (1.0-2.8) Lipase 153 (23-300) U/L Urine RBC None seen (0-5/HPF) Urine WBC None seen (0-5/HPF) Ur Squamous Epith Cells None seen (0-5/HPF) Urine Bacteria None seen (None) Ur Culture Indicated? Cult not indicated Urine Dip Bedside Urine Glucose Negative Bedside Urine Bilirubin - Negative Bedside Urine Ketone - Negative Urine Specific [place] 1.005 Bedside Urine Occult Blood + Bedside Urine pH 6.0 Bedside Urine Protein - Negative Bedside Urine Urobilinogen - Negative Bedside Urine Nitrite - Negative Bedside Urine Leukocytes - Negative Esterase Point of care testing: Urine Dip Bedside Urine Glucose Negative Bedside Urine Bilirubin - Negative Bedside Urine Ketone - Negative Urine Specific [place] 1.005 Bedside Urine Occult Blood + Bedside Urine pH 6.0 Bedside Urine Protein - Negative Bedside Urine Urobilinogen - Negative Bedside Urine Nitrite - Negative Bedside Urine Leukocytes - Negative Esterase [facility] Narrative Medical decision making narrative: Patient presents today with multiple potential etiologies who his symptoms. He has a history of pancreatitis however his abdominal pain today is more in the left lower quadrant. He has had hematuria which points towards a kidney stone however he has reproducible tenderness to palpation which would potentially be more consistent with diverticulitis. Patient was uncertain as to whether not his symptoms today were consistent with his prior history of renal stones or diverticulitis. Review of his medical record shows that the time that he has mentioned that was diagnosed with kidney stones that he actually did not have any ureteral stones on the CT scan. He was treated presumptively like he would just passed a stone. Because this uncertainty a CT scan was ordered. Care turned over to they provider to follow up and disposition. 11/08/22 Mank: Patient signed out to myself by Dr. Blancas. Patient seen and evaluated by myself. Patient has 4 x 4 x 6 mm stone in the proximal left ureter located just distal to the ureteropelvic junction, additional stone in the left collecting system. Moderate left hydro, hepatic steatosis. No other acute changes noted. Patient has labs show no leukocytosis, normal hemoglobin and platelets, electrolytes are appropriate, renal function 0.59 consistent with priors. Glucose 157 with normal LFTs. Patient is born care urine has blood, microscopy shows Patient received Zofran and Toradol IV. He is feeling somewhat improved but pain is starting to creep back up. Discussed will do an additional dose of medication. He has been on Flomax in the past but not currently. Patient states he is not currently seeing a urologist, he has been straining his urine he is had cerebral before he states last time he was here and took several days for his pain to go away so that may have been more colitis as there was not stone seen on imaging but discussed that are different types of stones some are radiopaque and some are not. Patient signs and symptoms sound very consistent no infectious symptoms. He did have vomiting overnight. Patient is feeling improved after a additional dose of pain medication. He feels comfortable with discharge home. Discussed will restart Flomax, antinausea medication can do Tylenol/ibuprofen and oxycodone for breakthrough pain. Discussed return precautions. Patient given referral for Urology. Patient does have a strainer at home. Discharge Plan Departure Patient Disposition: Home Clinical Impression: Kidney stone on left side Instructions: DI for Kidney Stones Activity Restrictions/Additional Instructions: Your work up today shows a kidney stone on the left side close to the bladder. Please follow-up with urology if your symptoms have not resolved next day or so. Please call to set up an appointment. Take Flomax once daily until gone. You may take Tylenol up to a 1000 mg every 6 hours and/or 600 mg every 6 hours as needed for pain. You may take Zofran 1 tablet every 6 hours as needed for nausea. If in adequate for pain you may take This medication can make you sleepy do not drive, perform hazardous activities or make any major decisions while taking it. This medication will make you constipated please take a stool softener once to twice daily until stools are soft and regular. Prescription sent to [facility] in [place]. Please return for fevers, rapidly worsening abdominal back or flank pain, persistent vomiting, inability urinate, black or bloody stools, passing out or other new or concerning changes. Prescriptions: New tamsulosin [Flomax] 0.4 mg capsule 0.4 mg PO DAILY Qty: 7 0RF ondansetron 4 mg tablet,disintegrating 4 mg PO Q6H PRN (Reason: nausea and vomiting) Qty: 10 0RF oxycodone 5 mg tablet 5 mg PO QID PRN (Reason: pain) Qty: 14 0RF Rx Instructions: You may take 1-2 tablets oxycodone every 6 hours as needed for pain. No Action aspirin 81 MG tablet,delayed release (DR/EC) 81 mg PO Q DAY Qty: 1 lisinopril 20 mg Tablet 20 mg PO DAILY hydrocodone-acetaminophen 5-325 mg tablet 1 tab PO Q6H PRN (Reason: pain) Qty: 10 0RF tamsulosin [Flomax] 0.4 mg capsule 0.4 mg PO BEDTIME Qty: 14 0RF hydrocodone-acetaminophen 5-325 mg tablet 1 tab PO Q6H PRN (Reason: pain) Qty: 10 0RF ondansetron 4 mg tablet,disintegrating 4 mg PO Q8H Qty: 10 0RF Referrals: Violet Humphreys MD [Physician] - Tanner Baldwin MD [Non-Staff] - Stand Alone Forms: Patient Portal/API
[2022-11-08] MEDS: KETOROLAC 30 MG/ML VIAL IV (05:22)
[2022-11-08] MEDS: ONDANSETRON 4 MG/2 ML INJ IV (05:22)
[2022-11-08 05:30] VITALS: BP 165/84; PULSE 74; O2SAT 97
[2022-11-08 05:44] LABS: Add Manual Diff / Slide Review NO; Basophils Absolute Auto 100 /uL (0-100); Basophils Percent Auto 1.1 % (0-2); Eosinophils Absolute Auto 100 /uL (0-450); Eosinophils Percent Auto 1.2 % (2-4); Hematocrit 42.6 % (41-53); Hemoglobin 14.9 g/dL (13.5-17.5); Lymphocytes Absolute Auto 2800 /uL (1100-4500); Lymphocytes Percent Auto 42.3 % (25-40); Mean Corpuscular HGB Conc 35.1 % (30-36); Mean Corpuscular Hemoglobin 32.3 PG (26-34); Mean Corpuscular Volume 92.2 fL (80-100); Monocytes Absolute Auto 500 /uL (0-900); Monocytes Percent Auto 7.9 % (3-14); Neutrophils Absolute Auto 3100 /uL (1500-7000); Neutrophils Percent Auto 47.5 % (50-75); Platelet Count 207 X10^3/uL (150-400); Red Blood Cell Count 4.62 X10^6/uL (4.5-5.9); Red Cell Distribution Width 12.9 % (11.6-14.8); White Blood Cell Count 6.5 X10^3/uL (4.5-11.0)
[2022-11-08 06:00] VITALS: PULSE 74; O2SAT 96
[2022-11-08 06:22] LABS: Alanine Aminotransferase 51 IU/L (<50); Albumin 4.1 g/dL (3.5-5.0); Albumin Globulin Ratio 1.1 (1.0-2.8); Alkaline Phosphatase 49 U/L (38-126); Aspartate Aminotransferase 40 IU/L (17-59); BUN Creatinine Ratio 30.5 (6-22); Bilirubin Total 0.5 mg/dL (0.2-1.3); Blood Urea Nitrogen 18 mg/dL (9-20); Calcium 8.2 mg/dL (8.4-10.2); Carbon Dioxide 22 mmol/L (22-32); Chloride 107 mmol/L (98-107); Estimated Glomerular Filt Rate > 60 mL/min (>60); Globulin 3.7 g/dL (1.7-4.1); Glucose 157 mg/dL (70-100); HEMOLYSIS < 15 (0-50); Lipase 153 U/L (23-300); Potassium 3.8 mmol/L (3.4-5.1); Sodium 138 mmol/L (137-145); Total Protein 7.8 g/dL (6.3-8.2)
[2022-11-08 06:30] VITALS: PULSE 70; O2SAT 96
[2022-11-08] MEDS: TAMSULOSIN 0.4 MG CAPSULE PO (08:16)
[2022-11-08] MEDS: MORPHINE 4 MG/ML INJ IV (08:17)
[2022-11-08 08:26] LABS: Bacteria Urine None Seen; Culture Indicated Urine Cult Not Indicated; RBC Urine None Seen (0-5/HPF); Squamous Epithelial Cell Urine None Seen (0-5/HPF); WBC Urine None Seen (0-5/HPF)
[2022-11-08 08:55] VITALS: BP 108/56
== END 2022-11-08 08:56 | disposition home or self-care (01) ==
PROVIDERS: Emergency Medicine; Emergency Provider Emergency Medicine
DX: N20.0 Calculus of kidney (principal); R11.2 Nausea with vomiting, unspecified; Z79.899 Other long term (current) drug therapy; Z87.442 Personal history of urinary calculi
CPT/HCPCS: 36415; 51798; 74177; 80053; 81003; 81015; 83690; 85025; 96374; 96375; 99284; J1885; J2270; J2405; Q9967